=== PATIENT | female | born 1965 | race Caucasian/White ===

== ENCOUNTER 2017-11-23 17:02 | Emergency (ER) | payer OTHER, SELFPAY ==
[2017-11-23 17:03] VITALS: BP 148/91; PULSE 86; RESP 16; TEMP 37.2; O2SAT 98; BMI 32.3
--- NOTE | 2017-11-23 17:23 | US_ITS ---
STUDY: VENOUS DOPPLER ULTRASOUND - LEFT LOWER EXTREMITY REASON FOR EXAM: Female, 52 years old. Swelling TECHNIQUE: Ultrasound evaluation of the deep vein system to include cool-scale imaging and compression was performed. Cool-scale imaging and Doppler sonographic evaluation, including duplex spectral analysis and qualitative color flow sonography, was performed. COMPARISON: None. FINDINGS: Common Femoral Vein: Normal compression, spontaneity and augmentation. Normal color Doppler. Common Femoral Vein/Greater Saphenous Junction: Normal compression. Femoral Proximal: Normal compression. Femoral Middle: Normal compression, spontaneity and augmentation. Normal color Doppler. Femoral Distal: Normal compression. Popliteal Vein: Normal compression, spontaneity and augmentation. Normal color Doppler. Posterior Tibial Vein: Normal compression. Peroneal Vein: Normal compression. There is superficial thrombophlebitis noted medially of the lower thigh and calf in the region of swelling. US/Venous Duplex Imag/Limited/Uni IMPRESSION: There is superficial thrombophlebitis noted medially of the lower thigh and calf in the region of swelling. Electronically Signed: Fausto Heart DO at 18:40 EDT Tel [phone], Service support ,
--- NOTE | 2017-11-23 18:07 | ED.VISSUMM ---
- ER Visit Summary Date of Service: 11/23/17 Chief Complaint: [Pain and swelling left leg] History of Present Illness: The patient is a 52 F [presents the emergency department complaint of pain and swelling to her left leg that she noticed yesterday. 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 Patient denies any chest pain or shortness of breath. Patient denies any recent travel or surgery. Patient is on oral contraceptive. Patient tells me that she has had a clot in that leg before but she is not sure if it was deep or superficial but states that she was not on any blood thinners. Patient denies any trauma to the leg.] Physical Examination: [HEENT-PERRLA, EOMI. Cranial nerves II through XII grossly intact. TMs clear. Mucous membranes moist. No adenopathy. Cardiovascular-regular rate and rhythm without murmur or ectopy Lungs-clear to auscultation, chest wall stable without crepitus or subcu emphysema Abdomen-normoactive bowel sounds, soft, nontender, no rebound or rigidity, no peritoneal signs. Extremities-intact ?4, normal range of motion, normal pulses. Left leg-patient has some ropes palpated behind the left knee medial aspect concerning for venous clot. Patient has negative Homans sign. Patient has some mild soft tissue swelling noted about the medial portion of the posterior knee. She is nervously intact. Test Results: [Venous duplex of the left lower extremity was negative for DVT but did show superficial thrombophlebitis.] Emergency Department Course and Treatment: [Patient was advised to take a full dose aspirin for the next 2 weeks. Patient advised use warm compresses to the area.] Treatment Plan: [Patient to take aspirin and use warm compresses to the area] Disposition: [Discharged home in stable condition] Impression: [Superficial thrombophlebitis left leg] This note was generated with [employer] dictation software. It may contain incorrect words, spelling, and punctuation that were not noted in review of the chart prior to signing ED Disposition - Plan for ED Patient: Chief Complaint: Lower Extremity Injury Referrals: Tobi Luna DO [Primary Care Provider] -
--- NOTE | 2017-11-23 18:09 | ED.DEP ---
ED Disposition - Plan for ED Patient: Chief Complaint: Lower Extremity Injury Instructions: ED Phlebitis Superficial Referrals: Tobi Luna DO [Primary Care Provider] - 5-7 Days
[2017-11-23 18:14] VITALS: BP 135/86; PULSE 76; RESP 16; O2SAT 98
== END 2017-11-23 18:21 | disposition home or self-care (01) ==
LOC: ED 18:19
PROVIDERS: Emergency Provider Emergency Medicine; Family Provider Family Medicine; PCP Family Medicine
DX: I80.02 Phlebitis and thrombophlebitis of superficial vessels of left lower extremity (principal); Z79.82 Long term (current) use of aspirin; Z79.899 Other long term (current) drug therapy
CPT/HCPCS: 93971; 99282

== ENCOUNTER → 2018-08-06 | Outpatient (CLI) | payer OTHER, SELFPAY ==
[2018-08-06 10:41] LABS: Vitamin D,25 Hydroxy 22.2 ng/mL (29.95-100.01)
[2018-08-06 10:51] LABS: Free T3 3.1 pg/mL (2.18-3.98); T4 Free Direct 0.98 ng/dL (0.76-1.46); Thyroid Stim Hormone (TSH) 2.83 uIU/mL (0.358-3.74)
== END | disposition home or self-care (01) ==
LOC: MTLAB 08:28
PROVIDERS: Family Provider Family Medicine; PCP Family Medicine; Referring Provider Obstetrics & Gynecology Gynecology; Visit Provider Obstetrics & Gynecology Gynecology
DX: R53.82 Chronic fatigue, unspecified (principal)
CPT/HCPCS: 36415; 82306; 84439; 84443; 84481

== ENCOUNTER 2018-10-12 12:42 | Emergency (ER) | payer OTHER, SELFPAY ==
[2018-10-12 12:43] VITALS: BP 170/91; PULSE 98; RESP 17; TEMP 36.7; O2SAT 98; BMI 37.8
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
== END 2018-10-12 15:54 | disposition home or self-care (01) ==
PROVIDERS: Emergency Provider Emergency Medicine; Family Provider Family Medicine; PCP Family Medicine
DX: R20.2 Paresthesia of skin (principal); E66.9 Obesity, unspecified
CPT/HCPCS: 70450; 99282; J7030

== ENCOUNTER → 2019-07-02 13:11 | Outpatient (CLI) | payer OTHER, SELFPAY ==
[2019-06-21 15:36] VITALS: BMI 37.5
--- NOTE | 2019-07-02 13:12 | MRI_ITS ---
STUDY: MRI RIGHT SHOULDER REASON FOR EXAM: Pain in right arm and shoulder, numbness/tingling, twitching in right arm, pulling/twisting injury 3 weeks ago. TECHNIQUE: Standardized fat and water weighted pulse sequences were obtained in all 3 orthogonal planes. COMPARISON: None. FINDINGS: There is supraspinatus tendinosis (T2 coronal images 11-13) without discrete tendon tear. Normal infraspinatus tendon. Normal subscapularis tendon. Normal teres minor tendon. Normal supraspinatus muscle. Normal infraspinatus muscle. Normal subscapularis muscle. Normal teres minor muscle. Normal glenohumeral articulation. There is mild cystic change of the posterior aspect of the greater tuberosity. Normal biceps labral complex. Normal intracapsular long biceps tendon. Normal labrum. Normal capsulo- ligamentous complex. There is acromioclavicular arthrosis with hypertrophic changes effacing the subacromial fat (T2 sagittal image 17). There is a Type I morphology (flat undersurface), with a neutral orientation. There is no subacromial-subdeltoid bursal fluid. Normal visualized coracohumeral and coracoacromial ligaments. Normal deltoid muscle. Normal trapezius muscle. MRI/Upper Ext Joint Only(Routine) IMPRESSION: Supraspinatus tendinosis without demonstrated rotator cuff tear. Acromioclavicular arthrosis. Electronically Signed: Dylan Cota MD at 14:15 EDT Tel , Service support ,
== END ==
PROVIDERS: PCP Family Medicine; Referring Provider Physician Assistant Surgical; Visit Provider Physician Assistant Surgical
DX: S46.911A Strain of unspecified muscle, fascia and tendon at shoulder and upper arm level, right arm, initial encounter (principal)
CPT/HCPCS: 73221

== ENCOUNTER → 2019-09-27 16:00 | Outpatient (CLI) | payer OTHER, SELFPAY ==
[2019-09-25 17:31] VITALS: BMI 37.5
--- NOTE | 2019-09-27 16:27 | RAD_ITS ---
HISTORY: CERVICAL RADICULOPATHY. PAIN AND STIFFNES IN NECK. NUMBNESS AND TINGLING. INJURY TO RIGHT SHOULDER A FEW MONTHS AGO. A PATIENT PULLED ON HER RIGHT ARM. PAIN SINCE THEN. EXAMINATION/TECHNIQUE: XR Spine Cervical 6 Views: COMPARISON: None FINDINGS: The cervical vertebra show normal height and alignment. No fracture or acute osseous abnormality. No suspicious bony lesion. C5-6 and C6-7 mild disc space narrowing accompanied by mild anterior endplate spurring. The posterior elements appear intact. No spondylolisthesis. C5-6 foraminal narrowing on the right secondary to uncovertebral spurring. The C1-C2 relationship appears normal. The paravertebral soft tissues are unremarkable. RAD/Cerv Spine 4 or 5 Views IMPRESSION: 1. No fracture or acute osseous abnormality. Normal cervical vertebral alignment. 2. C5-6 and C6-7 degenerative disc disease and spondylosis. 3. C5-6 foraminal narrowing on the right secondary to uncovertebral spurring. at 0005 Reported and signed by: Sesar Baumann MD Electronically Signed: Sesar Baumann, at 0:04 EDT Tel , Service support ,
--- OUTSIDE RECORDS SUMMARY | 2020-02-02 12:49 | XMS RPT_ITS | CCD ---
:1965 External Reference #:[id number] Author Organization [facility] Care Team Providers Name Role Phone Marybeth MERINO, Efe Unavailable Unavailable MD Lillie, S Unavailable Geovani Olivier Unavailable Geovani Ruth Unavailable Unavailable DEMETRI Attending Unavailable Allergies Reported Allergen Reaction(s) Severity Date of Onset Location meperidine Swelling Moderate, Moderate 08-24-2015 - [place] [facility] ([id number]) Medications Medication Name Sig Date Prescriber Location aspirin ASPIRIN EC 81 MG TBEC One 08-24-2015 [facility] tablet by mouth daily (03829 ) ASPIRIN [id number] Payton Rueda RN JEN WOMENS 81-300 MG TABS One tablet by 08-24-2015 [facility] (78796) mouth daily ASPIRIN-CALCIUM CARBONATE [id number] Tobi A Jeremy DO JEN WOMENS 81-300 MG TABS One tablet by 08-24-2015 [facility] (09007) mouth daily ASPIRIN-CALCIUM CARBONATE [id number] Tobi A Jeremy DO JEN WOMENS 81-300 MG TABS One tablet by 08-24-2015 [facility] (42106) mouth daily ASPIRIN-CALCIUM CARBONATE 58654957783 Tobi A Jeremy DO aspirin / calcium JEN WOMENS 81-300 MG TABS 08-24-2015 [facility] carbonate One tablet by mouth daily (4 4691) ASPIRIN-CALCIUM CARBONATE [id number] Tobi A Jeremy DO LEVONORGESTREL-ETHINYL ITZEL-28 0.15-30 MG-MCG TABS 08-24-2015 [facility] ESTRAD One tablet by mouth daily for (09772) 24 days LEVONORGESTREL-ETHINYL ESTRAD 34289130212 Tobi A Jeremy DO ITZEL-28 0.15-30 MG-MCG TABS One tablet by 08-24-2015 [facility] (64060) mouth daily for 24 days LEVONORGESTREL-ETHINYL ESTRAD 55454575492 Tobi A Jeremy DO ITZEL-28 0.15-30 MG-MCG TABS One tablet by 08-24-2015 [facility] (27831) mouth daily for 24 days LEVONORGESTREL-ETHINYL ESTRAD 27520117910 Tobi A Jeremy DO ITZEL-28 0.15-30 MG-MCG TABS One tablet by 08-24-2015 [facility] (27922) mouth daily for 24 days LEVONORGESTREL-ETHINYL ESTRAD 90762400455 Tobi A Jeremy DO MULTIPLE VITAMINS-MINERALS ONE-A-DAY WOMENS 50+ 08-24-2015 [facility] ADVANTAGE TABS One tablet by Group (95406) mouth daily MULTIPLE VITAMINS-MINERALS 38238750420 Tobi A Jeremy DO ONE-A-DAY WOMENS 50+ ADVANTAGE TABS One 08-24-2015 [facility] (58460) tablet by mouth daily MULTIPLE VITAMINS-MINERALS 64417395930 Tobi A Jeremy DO ONE-A-DAY WOMENS 50+ ADVANTAGE TABS One 08-24-2015 [facility] (41967) tablet by mouth daily MULTIPLE VITAMINS-MINERALS 40747811359 Tobi A Jeremy DO ONE-A-DAY WOMENS 50+ ADVANTAGE TABS One 08-24-2015 [facility] (23769) tablet by mouth daily MULTIPLE VITAMINS-MINERALS 04005761434 Tobi A Jeremy DO Problems Active Problems Category Problem Name Status Date Location Other screening for Encounter for Active 07-16-2018 - [facility] suspected conditions screening for [place] ([place] (not mental disorders malignant neoplasm of (42175) or infectious disease) cervix Past or Other Problems Category Problem Name Status Date Location Cardiac dysrhythmias Palpitations Completed 08-24-2015 - [facility] (14392) Heart valve disorders Cardiac murmur, Completed 09-08-2015 - [facility] (18452) Other upper Viral upper Completed 05-03-2016 - [facility] respiratory infections respiratory tract Group (33940) infection Unclassified Hypersomnia Completed 08-24-2015 - [facility] (93760) Results Result Name Value Range Unit Interpretation Flag Date Location hpv on 2018-07-23 HPV Interp See Interp HPVN Normal 07-23-2018 Replaced by [facility] ([place]) ([id number]) Comment: Order Comment: Order placed by AP_HPV_ORDER rule from [id number] Result Comment: High Risk HPV Typing: NEGATI VE HPV types 16, 18, 31, 33, 35 , 39, 45, 51, 52, 56, 58, 59, 66 and 68 DNA were undetectable or below the pr e-set threshold. The mireille High-Risk HPV DNA Test is not intended for use as a screening device for Pap normal women under age 3 0 and is not intended to substitute for regular Pap screening. The mireille High-Risk HPV DNA Test is designed to augment existing methods for the detection of cervical diseas e and should be used in conjunction with clinical information derived from [facility] diagnostic and screening tests, physical examinations and full medical history in accordance with appropriate patient management procedures. NOTE: A negative result does not preclude the presence of HPV infection because results depend on adequate specimen collection, absence of inhibitors and sufficient DNA to be detected. See Inter HPVN Performed By: #### HPV #### [address] [address] HPV Source Cervix Normal 07-23-2018 [facility] ([place]) ([id number]) Comment: Order Comment: Order placed by AP_HPV_ORDER rule from [id number] Performed By: #### HPV #### [address] [address] section hand cytology report on 2018-07-19 [employer] Engineer Cytology . Normal 07-19-[address] [facility] Report Pathology Reports [facility] [place] [facility] ([place]) Accession: Collected Date/Time: Received Date/Time: Patholog ist: ([id number]) [id number] 07/16/2018 10:01 EDT 07/16/2018 18:00 EDT [employer] Cytology Report SPECIMEN: Specimen Description: Liquid Prep w/ HPV Specimen: Cervical/Endocervical Screening or Diagnostic: Screening RELEVANT HISTORY: LMP: 05-03-18 Control: Yes [id number] SPECIMEN ADEQUACY: SATISFACTORY FOR EVALUATION ENDOCERVICAL/TRANSFORMATIONAL ZONE COMPONENT PRESENT INTERPRETATION/RESULTS: NEGATIVE FOR INTRAEPITHELIAL LESION OR MALIGNANCY ADJUNCTIVE TESTING: HIGH RISK HPV DNA TESTING ORDERED, REPORT TO FOLLOW UNDER SE PARATE COVER Electronically Signed by Pathology report verified by [facility]. Screened by: LS Electronically signed by Karen SAM (ASCP) Sign-Out Date: 07/19/2018 11:47 Performing Lab: [facility], [address] [place] [address] Disclaimer The Pap test is a screening test for cervical cancer. As evidenced by published data, it is subject to both inherent fal se negative and false positive results. Your patient's results should be interpreted in con text with pertinent clinical history including gynecological examination. Comment: Performed By: #### GYCR #### [place] [address] lab report: thyroid stim hormone (tsh) on 2016-09-08 Thyroid 1.81 0.358-3.74 u[iU]/mL Invalid 09-08-2016 - [facility] [facility] stimulating Interpretation Code 09-09-19 [facility] hormone (TSH) (90957 ) lab report: magnesium on 2016-09-08 Magnesium 2.0 1.8-2.4 mg/dL Invalid Interpretation 017 - [facility] Code 09-08-2016 Group (44 361) lab report: lipid profile on 2016-09-08 Cholesterol 205 200 mg/dL High 09-08-2016 - [facility] 09-08-2016 [facility] (44 691) HDL Cholesterol 45 mg/dL Invalid 09-08-2016 - [facility] Interpretation Code 09-08-2016 Group (18143) LDL Cholesterol 119 0-130 mg/dL Invalid 09-08-2016 - [facility] Interpretation Code 09-08-2016 Group (73600) Triglyceride 206 mg/dL High 09-08-2016 [facility] 09-08-2016 [facility] (44 691) very low density 41 5-40 mg/dL High 09-08-2016 - [facility] lipoproteins 09-08-2016 Group (43743) lab report: basic metabolic profile (bmp ) on 2016-09-08 Anion gap 9 5-15 mmol/L Invalid 09-08-2016 - [place] Interpretation Code 09-08-2016 [facility] (57573) BUN/Creatinine 11.9 RATIO 10-20 Invalid 09-08-2016 - [facility] Ratio Interpretation Code 09-08-2016 [facility] (21693) Calcium 8.8 8.5-10.1 mg/dL Invalid 09-08-2016 - [place] Interpretation Code 09-08-2016 [facility] (66632) Chloride 107 98-107 mmol/L Invalid 09-08-2016 - [place] Interpretation Code 09-08-2016 [facility] (20532) CO2 24.0 21.0-32.0 mmol/L Invalid 09-08-2016 - [place] Interpretation Code 09-08-2016 [facility] (48683) Creatinine 0.84 0.55-1.02 mg/dL Invalid 09-08-2016 - [place] Interpretation Code 09-08-2016 [facility] (92638) eGFR 76 >60 mL/min Invalid 09-08-2016 - [place] (non-black) Interpretation Code 09-09-19 17 [facility] (57784) eGFR 92 >60 mL/min Invalid 09-08-2016 - [place] (non-black) Interpretation Code 09-09-19 17 [facility] (40897) Glucose 90 70-110 mg/dL Invalid 09-08-2016 - [place] Interpretation Code 09-08-2016 [facility] (75793) Potassium 3.9 3.5-5.1 mmol/L Invalid 09-08-2016 - [place] Interpretation Code 09-08-2016 [facility] (12029) Sodium 140 136-145 mmol/L Invalid 09-08-2016 - [place] Interpretation Code 09-08-2016 [facility] (39120) Urea nitrogen 10 7-18 mg/dL Invalid 09-08-2016 - [facility] Interpretation Code 09-08-2016 [facility] (39701) office visit on 10-19-22 Documentation of Done Invalid 09-06-2016 - [place] current Interpretation 09-06-2016 [facility] medications Code (84846) (procedure) Fall risk medical Invalid 09-06-2016 - [place] assessment contraindication Interpretation 017 [facility] Code (97697) clinical lists update: preload on 2016-09-05 Left ventricular 55 % Invalid Interpretation 09-05-2016 - [facility] Ejection fraction Code 09-05-2016 Lilia urbina (83618) office visit: uc: sore throat on 2016-05-03 Tobacco smoking Never Invalid Interpretation 0 05-03-2016 - [facility] status NHIS Code 05-03-2016 Group ( 95700) Tobacco use Never smoker Invalid Interpretation - [place] [facility] Code 05-03-2016 Group (44 691) lab report: urinalysis, employee on 2015-09-17 Nitrite Urine Negative Negative Invalid 09-17-2015 - [facility] Interpretation 09-17-2015 [facility] Code (62366) Occult Blood, 50 Negative High 09-17-2015 - [facility] urine 09-17-2015 [facility] up (86751) specific 1.025 1.002-1.030 Invalid 09-17-2015 - [place] gravity, urine Interpretation 09-17-2015 [facility] Code (54242) Urine, Negative Negative Invalid 09-17-2015 - [place] bilirubin Interpretation 09-17-2015 [facility] presence Code (21409) Urine, clarity Turbid Clear Invalid 09-17-2015 - [facility] Interpretation 09-17-2015 [facility] Code (84700) Urine, color Yellow Yellow Invalid 09-17-2015 [facility] Interpretation 09-17-2015 [facility] Code (90914) Urine, glucose Normal mg/dl Normal Invalid 09-17-2015 - [place] presence Interpretation 09-17-2015 [facility] Code (01081) Urine, ketones Negative Negative Invalid 09-17-2015 - [place] [facility] presence Interpretation 09-17-2015 [facility] Code (77658) Urine, 100 Negative High 09-17-2015 - [place] leukocyte 09-17-2015 [facility] up esterase (90632) presence Urine, pH 6.0 5.0 - 8.0 [pH] Invalid 09-17-2015 - [place] Interpretation 09-17-2015 [facility] Code (22786) Urine, protein Negative Negative mg/d Invalid 09-17-2015 - [facility] L Interpretation 09-17-2015 [facility] Code (27217) urobilinogen, Normal mg/dl Normal Invalid 09-17-2015 - [place] urine, by Interpretation 09-17-2015 [facility] dipstick Code (88059) lab report: thyroid stim hormone (tsh) on 2015-09-17 Thyroid 1.41 0.358-3.74 u[iU]/mL Invalid 09-17-2015 - [place] [facility] stimulating Interpretation Code 09-17-19 [facility] hormone (TSH) (74850 ) lab report: t4 total, thyroxin on 2015-09-17 Thyroxine (T4) 9.8 4.8-13.9 ug/dL Invalid 09-17-2015 - [facility] Interpretation Code 09-17-2015 Group (22128) lab report: employee profile on 2015-09-17 Alanine 25 12-78 U/L Invalid 09-17-2015 - [place] aminotransferase Interpretation 09-17-19 16 Heart (ALT) Code Group (85964) Albumin 3.3 3.4-5.0 g/dL Low 09-17-2015 - [place] 09-17-2015 [facility] (74675) Albumin/Globulin 0.8 RATIO 0.9-2.4 {ratio} Low 09-17-2015 - [place] Ratio 09-17-2015 [facility] (56919) Alkaline phosphatase 52 50-136 U/L Invalid - [place] (ALP) Interpretation 09-17-2015 Hear t Code Group (22299) Anion gap 6 5-15 mmol/L Invalid 09-17-2015 - [place] Interpretation 09-17-2015 Hear t Code Group (87203) Aspartate 17 15-37 U/L Invalid 09-17-2015 - [place] aminotransferase Interpretation 09-17-19 16 Heart (AST) Code Group (92772) Bilirubin (direct) 0.08 0.00-0.30 mg/dL Invalid 09-17-2015 - [place] Interpretation 09-17-2015 Hear t Code Group (36802) Bilirubin (total) 0.40 0.20-1.00 mg/dL Invalid 09-17-2015 - [place] Interpretation 09-17-2015 Hear t Code Group (29257) BUN/Creatinine Ratio 17.2 10-20 Invalid 6 - [place] RATIO Interpretation 09-17-2015 [facility] (25966) Calcium 8.8 8.5-10.1 mg/dL Invalid 09-17-2015 - [place] Interpretation 09-17-2015 [facility] (03786) Chloride 107 98-107 mmol/L Invalid 09-17-2015 - [place] Interpretation 09-17-2015 [facility] (73392) Cholesterol 192 200 mg/dL Invalid 09-17-2015 - [place] Interpretation 09-17-2015 [facility] (28647) CO2 26.0 21.0-32.0 mmol/L Invalid 09-17-2015 - [place] Interpretation 09-17-2015 [facility] (30309) Creatinine 0.81 0.55-1.20 mg/dL Invalid 09-17-2015 - [place] Interpretation 09-17-2015 [facility] (75727) eGFR (non-black) 80 >60 mL/min Invalid 09-17-2015 - [place] Interpretation 09-17-2015 [facility] (08758) eGFR (non-black) 97 >60 mL/min Invalid 09-17-2015 - [place] Interpretation 09-17-2015 [facility] (48615) GE use only - for 4.10 Invalid 09-17-2015 - [place] [employer] import Interpretation 09-17-19 16 Heart when terms are not Code G roup otherwise specified (70161) Globulin 4.2 2.3-3.5 g/dL High 09-17-2015 - [place] 09-17-2015 [facility] (57436) Glucose 86 70-110 mg/dL Invalid 09-17-2015 - [place] Interpretation 09-17-2015 [facility] (40565) HDL Cholesterol 47 mg/dL Invalid 09-17-2015 - [place] Interpretation 09-17-2015 [facility] (85407) lactate 200 84-246 U/L Invalid 09-17-2015 - [place] dehydrogenase - Interpretation 6 Heart serum Code Group (62487) LDL Cholesterol 111 0-130 mg/dL Invalid 09-17-2015 - [place] Interpretation 09-17-2015 [facility] (50737) Phosphorus 2.2 2.5-4.9 mg/dL Low 09-17-2015 - [facility] [facility] [place] [facility] om [facility] (14548) Potassium 4.0 3.5-5.1 mmol/L Invalid 09-17-2015 - [place] Interpretation 09-17-2015 Hear [facility] (14964) Protein 7.5 6.4-8.2 g/dL Invalid 09-17-2015 - [place] Interpretation 09-17-2015 [facility] (35227) Sodium 139 136-145 mmol/L Invalid 09-17-2015 - [place] Interpretation 09-17-2015 [facility] (82156) Triglyceride 172 mg/dL Invalid 09-17-2015 [facility] Interpretation 09-17-2015 [facility] (21082) Urate 5.1 2.6-6.0 mg/dL Invalid 09-17-2015 - [place] Interpretation 09-17-2015 [facility] (17897) Urea nitrogen 14 7-18 mg/dL Invalid 09-17-2015 - [facility] Interpretation 09-17-2015 [facility] (43513) very low density 34 5-40 mg/dL Invalid 09-17-2015 - [place] lipoproteins Interpretation 09-17-2015 [facility] Code Group (87244) lab report: cbc, employee on 2015-09-17 Basophils/100 0.6 0-1 % Invalid 09-17-2015 - [facility] leukocytes Interpretation Code 6 [facility] (57000) Eosinophils/100 3.8 0-5 % Invalid 09-17-2015 - [place] leukocytes Interpretation Code 6 [facility] (58151) Erythrocytes (RBC) 4.31 4.2-5.4 10*6/uL Invalid 09-17-2015 - [place] Interpretation Code 09-17-2015 [facility] (78108) Hematocrit (HCT) 39.1 37-47 % Invalid 09-17-2015 - [place] Interpretation Code 09-17-2015 [facility] (87193) Hemoglobin (HGB) 12.6 12.0-15. g/dL Invalid 09-17-2015 - [place] 0 Interpretation Code 09-17-2015 [facility] (33358) Lymphocytes 1.99 X10 0.83-4.5 Invalid 09-17-2015 - [place] 3/UL 1 Interpretation Code 09-17-2015 [facility] (77108) Lymphocytes/100 37.8 19-41 % Invalid 09-17-2015 - [place] leukocytes Interpretation Code 6 [facility] (00804) MCH 29.2 27.0-32. pg Invalid 09-17-2015 - [place] 0 Interpretation Code 09-17-2015 [facility] (50815) MCHC 32.2 32-36 Invalid 09-17-2015 - [place] G/GL Interpretation Code 09-17-2015 [facility] (31325) MCV 90.7 81-99 fL Invalid 09-17-2015 - [place] Interpretation Code 09-17-2015 [facility] (97593) Monocytes/100 9.9 0-10 % Invalid 09-17-2015 - [place] [facility] leukocytes Interpretation Code 6 [facility] (24053) neutrophil count, 2.5 X10 2.0-7.7 Invalid 09-17-2015 - [place] blood 3/UL Interpretation Code 09-17-2015 [facility] (51589) Neutrophils/100 47.7 47-70 % Invalid 09-17-2015 - [place] leukocytes Interpretation Code 6 [facility] (17158) Platelets 329 150-450 10*3/mm Invalid 09-17-2015 [place] 3 Interpretation Code 09-17-2015 [facility] (48149) PMV by Violet 9.4 6.2-12.0 fL Invalid 09-17-2015 [place] Interpretation Code 09-17-2015 [facility] (70120) RDW-CA 13.2 11.6-14. % Invalid 09-17-2015 - [place] 6 Interpretation Code 09-17-2015 [facility] (07207) red blood cell 43.5 35.1-43. fL Invalid 09-17-2015 - [facility] distribution 9 Interpretation Code 016 [facility] width, size (95216) density WBC (Leukocytes) 5.3 4.4-11.0 10*9/L Invalid 09-17-2015 - [place] Interpretation Code 09-17-2015 [facility] (13414) Vital Signs Vital Sign Description Value / Unit Date Location The following section is limited to 5 en tries per type and includes entries from the following time range: [id number] - [id number] 3. BMI (Body Mass Index) 36.02 kg/m2 09-06-2016 - 09-06-2016 [facility] (93185) Body Temperature 98.4 [degF] 01-17-2017 - 05-03-2016 [facility] (52789) BP Diastolic 82 mm[Hg] 09-06-2016 - 09-06-2016 [facility] (68605) BP Systolic 130 mm[Hg] 09-06-2016 - 09-06-2016 [facility] (28647) BSA (Body Surface Area) 2.17 m2 05-03-2016 - 05-03-2016 [facility] (12005) Height 170.18 cm 09-06-2016 - 09-06-2016 [facility] (76908) Pulse (Heart Rate) 72 /min 09-06-2016 - 09-06-2016 [facility] (53563) Pulse Oximetry 98 % 05-03-2016 - 05-03-2016 [facility] (17034) Respiratory Rate 20 /min 09-06-2016 - 09-06-2016 [facility] (49035) Weight 104.33 kg 09-06-2016 - 09-06-2016 [facility] (20077) Encounters Date Type Reason Provider Location 07-16-2018 - Patient encounter Encounter for IRVIN MOSQUERA Facility: B 07-21-2018 procedure screening for malignant neoplasm of cervix Procedures Procedure Name Date Provider Location *BMP 09-06-2016 - Emanuel Moreira MD [facility] 09-13-2016 ([id number]) 24 hour holter monitor 09-06-2016 - Emanuel Moreira MD [facility] 09-15-2016 (84231) DIET CONSULTANT 09-06-2016 - Emanuel Moreira MD [facility] 09-06-2016 (78878) Follow Up Appt 1 year 09-06-2016 - MD [place] [facility] 09-06-2016 (18154) Magnesium 09-06-2016 - Emanuel Moreira MD [facility] 09-13-2016 (85778) Thyroid stimulating hormone 09-06-2016 - [facility] (TSH) 09-13-2016 (35946) Rapid strep test 05-03-2016 - Brent SANDOVAL [facility] 05-03-2016 (17102) Echocardiography 09-08-2015 - Emanuel Moreira MD [facility] 10-01-2015 (24637) Thyroid stimulating hormone 09-08-2015 - Emanuel Moreira MD [facility] (TSH) 09-17-2015 (74753) Thyroxine (T4) 09-08-2015 - Emanuel Mroeira MD [facility] 09-17-2015 (94926) Plan of Treatment Plan Description Date Location *Hepatic Function Panel *Hepatic Function Panel 09-13-2017 - [facility] 09-23-2016 (78672) *Lipid Profile CC PCP *Lipid Profile CC PCP 09-13-2017 [facility] 09-23-2016 (18032) Appointment Appointment 09-06-2017 - [place] [facility] 09-06-2017 (02991) Appointment Appointment 09-06-2017 - [place] [facility] 09-06-2017 (33340) *BMP *BMP 09-06-2016 - [place] [facility] 09-13-2016 (36845) 24 hour holter monitor 24 hour holter monitor 09-06-2016 - [facility] 09-06-2016 (45415) DIET CONSULTANT DIET CONSULTANT 09-06-2016 - [place] [facility] 09-06-2016 (68011) Follow Up Appt 1 year Follow Up Appt 1 year 09-06-2016 [facility] 09-06-2016 (76570) *Magnesium *Magnesium 09-06-2016 - [place] [facility] 09-13-2016 (60652) *TSH *TSH 09-06-2016 - [place] [facility] 09-13-2016 (44938) DIET CONSULTANT DIET CONSULTANT 09-08-2015 - [place] [facility] 09-08-2015 (25526) Echocardiogram (complete) Echocardiogram (complete) 09-08-2015 - [facility] [facility] 09-08-2015 (92455) Follow Up Appt 1 year Follow Up Appt 1 year 09-08-2015 - [facility] 09-08-2015 (76858) *Lipid Profile CC PCP *Lipid Profile CC PCP 09-08-2015 - [facility] 09-08-2015 (08979) *TSH *TSH 09-08-2015 - [place] [facility] 09-17-2015 (40977) *T4 (Total) *T4 (Total) 09-08-2015 - [place] [facility] 09-17-2015 (83771) Cardiac Referral Emanuel Cardiac Referral [place] 08-24-2015 - [facility] MD Lillie, [place] [facility] MD Lillie, [place] [facility] 08-28-2015 (98206) Group, [address] Group, [address], [place], [address] [address], [place], [address] + Patient education HEART%20PALPITATIONS [facility] [facility] (22977) Summary Purpose Family History No Family History Records Found Advance Directives No Advanced Directives Records Found Additional Source Comments FOR RECORDS PERTAINING TO PATIENTS WHO ARE OR HAVE BEEN ENROLLED IN A CHEMICAL DEPENDENCY/SUBSTANCE ABUSE PROGRAM, SOME INFORMATION MAY BE OMITTED. This clinical summary was aggregated from multiple sources. Caution should be exercised in using it in the provision of clinical care. This summary normalizes information from multiple sources, and as a consequence, information in this document may materially changethe coding, format and clinical context of patient data. In addition, data may be omittedin some cases. CLINICAL DECISIONS SHOULD BE BASED ON THE PRIMARY CLINICAL RECORDS. [employer] [facility] provides no warranty or guarantee of the accuracy or completeness of information in this document. UNRECOGNIZED CONTENT PROVIDED BELOW FOR UNRECOGNIZED SECTION INFORMATION SOURCE DATE CREATED AUTHOR AUTHOR'S ORGANIZATIO N 07/24/2018 [facility] at[place] ([place])
== END ==
PROVIDERS: PCP Internal Medicine; Referring Provider Internal Medicine; Visit Provider Internal Medicine
DX: M54.12 Radiculopathy, cervical region (principal)
CPT/HCPCS: 72050

== ENCOUNTER 2019-10-01 09:00 | Outpatient (RCR) | payer OTHER, SELFPAY ==
[2019-07-02 17:22] VITALS: BMI 37.5
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
--- NOTE | 2019-08-15 17:26 | HP.PTREVAL ---
JAIME Monaco, It has been my pleasure to treat JOSE DANIEL JENNINGS over the last 10 visits for R shoulder strain. Please see the progress note below for an update on the physical therapy plan of care! Subjective: Pt reports she is still really sore this date Objective/Function: R shoulder and neck pain is not progressing at this time as pt continues to have sleep difficulty as a result. 11/24 this date. R shoulder MMT: 4+/5 throughout with the exception of ER= 4/5. Pt is now I with HEP of rotator cuff and scapular stabilizer strengthening Plan Plan: Continue after doctor visit Goals Goal 1:: Decrease R shoulder and neck pain x 50% to aid with sleep Goal Time Frame: 4-6 Weeks Goal Progress: Not Progressing Goal 2:: Increase R shoulder strength x 1 grade to aid with RTW without limitation Goal Time Frame: 4-6 Weeks Goal Progress: Progressing Goal 3:: I with HEP Goal Time Frame: 4-6 Weeks Goal Progress: Goal Met Anticipated Interventions Patient/Client Instruction: Educate patient on: Condition, Plan of Care For the Purpose of:: To improve self management Therapeutic Exercise to Include: Strength training, Endurance training, Body mechanics, Active ROM, Scapular Strength/Stabilization For the Purpose of:: To decrease pain, To increase ROM, To improve muscle performance and motor function Cryotherapy (ice pack, ice massage): Yes For the Purpose of:: To decrease pain Please do not hesitate to contact me at [phone] by phone or if you have questions or concerns regarding this new plan of care! Sincerely, Luther Jennings, PT, ATC
--- NOTE | 2019-08-21 08:43 | HP.PTREVAL ---
JAIME Monaco, It has been my pleasure to treat JOSE DANIEL JENNINGS over the last 12 visits for R shoulder strain. Please see the progress note below for an update on the physical therapy plan of care! Subjective: I am sore today Objective/Function: R shoulder pain ranges from 5-9/10. R shoulder ROM: flex= 140, abd= 110, ER= 50. R shoulder MMT: 4-/5 and painful with all testing. Pt is making progress but still displays pain, weakness, and limited ROM Plan Plan: Contact referring provider for further action Goals Goal 1:: Decrease R shoulder and neck pain x 50% to aid with sleep Goal Time Frame: 4-6 Weeks Goal Progress: Not Progressing Goal 2:: Increase R shoulder strength x 1 grade to aid with RTW without limitation Goal Time Frame: 4-6 Weeks Goal Progress: Progressing Goal 3:: I with HEP Goal Time Frame: 4-6 Weeks Goal Progress: Goal Met Anticipated Interventions Patient/Client Instruction: Educate patient on: Condition, Plan of Care For the Purpose of:: To improve self management Therapeutic Exercise to Include: Strength training, Endurance training, Body mechanics, Active ROM, Scapular Strength/Stabilization For the Purpose of:: To decrease pain, To increase ROM, To improve muscle performance and motor function Cryotherapy (ice pack, ice massage): Yes For the Purpose of:: To decrease pain Please do not hesitate to contact me at [phone] by phone or if you have questions or concerns regarding this new plan of care! Sincerely, Luther Jennings, PT, ATC
--- NOTE | 2019-10-01 09:37 | HP.PTDCSUM ---
It has been my pleasure to treat JOSE DANIELBAO DARDENYOANAMADHURI referred by JAIME Monaco, with the diagnosis of R shoulder strain for a total of 23 visit(s). Discharge Date: Please see the following information for a summary of their discharge status. Subjective: Pt reports the pain in her R shoulder and R C/S are relatively the same. R shoulder Pain Intensity (Out of 10): 4 % Improvement: 10 Objective/Function: R shoulder and neck pain still at 4/10 pain currently, will increase to 9/10 at worst (last week). R shoulder strength is 5/5 throughout. Pt is I with HEP. Pt has achieved all Rx goals with the exception of decreasing R shoulder and neck pain Goal 1:: Decrease R shoulder and neck pain x 50% to aid with sleep Goal Progress: Not Progressing Goal 2:: Increase R shoulder strength x 1 grade to aid with RTW without limitation Goal Progress: Goal Met Goal 3:: I with HEP Goal Progress: Goal Met Plan: Discontinue to HEP If there are questions or concerns regarding this patient's physical therapy, please feel free to call me at [phone]. Thank you for the referral of this patient. Sincerely, Luther Jennings, PT, ATC
== END 2019-10-01 19:00 | disposition home or self-care (01) ==
LOC: PT 09:00
PROVIDERS: PCP Family Medicine; Referring Provider Physician Assistant Surgical; Visit Provider Physician Assistant Surgical
DX: S46.911D Strain of unspecified muscle, fascia and tendon at shoulder and upper arm level, right arm, subsequent encounter (principal)
CPT/HCPCS: 97014; 97110; 97140; 97161; 97164; G0283

== ENCOUNTER → 2019-11-25 14:56 | Outpatient (CLI) | payer OTHER, SELFPAY ==
[2019-08-16 12:07] VITALS: BMI 37.5
[2019-10-31 15:11] VITALS: BMI 37.5
--- NOTE | 2019-11-25 15:02 | MRI_ITS ---
STUDY: MRI CERVICAL SPINE WITHOUT CONTRAST REASON FOR EXAM: Female, 54 years old. radiculopathy, abn xray, NUMBNESS/TINGLING RIGHT ARM X 3 MOS TECHNIQUE: Standardized fat and water weighted pulse sequences were obtained in the sagittal and axial planes. COMPARISON: Cervical spine x-rays 09/27/2019 FINDINGS: Normal foramen magnum and brainstem-cervical cord junction. Normal craniovertebral junction. Normal anterior atlantoaxial articulation. Normal odontoid process. Decreased cervical lordosis. Normal vertebral bodies and posterior osseous elements. C2-3: Normal endplates. Normal disc height, signal and morphology. Normal central canal and intervertebral neural foramina. C3-4: Normal endplates. Normal disc height, signal and minor bulging disc osteophyte complex with small broad-based left posterolateral/foraminal osteophyte protrusion. Mild narrowing of the central canal and effacement upon the ventral surface of the cord.. Mild right neuroforaminal encroachment and moderate to severe left neuroforaminal stenosis C4-5: Normal endplates. Normal disc height signal and morphology. Normal central canal and intervertebral neural foramina C5-6: Endplate spurring.. Narrowed disc space with mild bulging disc osteophyte complex and prominent broad-based right posterolateral/foraminal disc protrusion. Narrowed central canal and cord compression to the right of the midline. Severe right neuroforaminal stenosis secondary to bony hypertrophy. C6-7: Narrowed disc space and endplate spurring. Minor bulging of the disc and prominent broad-based right paracentral/posterolateral disc protrusion narrowing the central canal compressing the cord to the right of the midline.. Severe right neuroforaminal stenosis and minor encroachment on the left.. C7-T1: Normal endplates. Normal disc height, signal and morphology. Normal central canal and intervertebral neural foramina. Normal cervical cord. Normal visualized soft tissue structures. MRI/Spine Cervical (Routine) IMPRESSION: No evidence for acute fracture or subluxation. Moderate spondylosis and multilevel spinal stenosis most severe at C5-6 and C6-7 on the right Electronically Signed: Milton Chandler MD at 16:19 EDT , Service support ,
== END ==
PROVIDERS: PCP Internal Medicine; Referring Provider Internal Medicine; Visit Provider Internal Medicine
DX: M54.12 Radiculopathy, cervical region (principal)
CPT/HCPCS: 72141

== ENCOUNTER → 2023-03-24 | Outpatient (CLI) | payer OTHER, SELFPAY ==
[2023-03-24 20:10] LABS: Follicle Stimulating Hormone 60.9 mIU/mL; Luteinizing Hormone 35.8 mIU/mL
== END | disposition home or self-care (01) ==
PROVIDERS: PCP Internal Medicine; Referring Provider Obstetrics & Gynecology Gynecology; Visit Provider Obstetrics & Gynecology Gynecology
DX: N95.1 Menopausal and female climacteric states (principal)
CPT/HCPCS: 36415; 83001; 83002

== ENCOUNTER → 2023-03-29 | Outpatient (CLI) | payer OTHER, SELFPAY ==
--- NOTE | 2023-03-29 15:11 | US_ITS ---
STUDY: ULTRASOUND OF THE FEMALE PELVIS - COMPLETE REASON FOR EXAM: Female, 57 years old. POST FATIMAH BLEEDING LMP: Menopause TECHNIQUE: Transabdominal and Transvaginal TECHNICAL QUALITY: Adequate. COMPARISON: None. FINDINGS: The uterus is anteverted and is in a midline position. The uterus measures 10.3 x 5.1 x 4.7 cm. Normal uterine cervix. The endometrium measures 5 mm in thickness, and is hyperechoic. There is no demonstrated endometrial mass. 3.6 cm round hypoechoic mass within the fundus the uterus consistent with an intramural fibroid. Another 2 cm hypoechoic mass in the posterior fundus the uterus consistent with an intramural fibroid. Another 1.5 similar hypoechoic mass in the posterior body of uterus consistent with a submucosal fibroid. I.U.D. - The patient does not have an I.U.D. The right ovary is visualized. The right ovary measures 2.4 x 1.9 x 1.4 cm. There is no right ovarian cyst or ovarian mass. There is no visualized right adnexal mass or complex lesion. There is normal arterial and normal venous vascularity. The left ovary is non-visualized.. There is no fluid in the cul-de-sac. The pre void volume of the bladder was 418 ml. The post void volume of the bladder was ml. Polycystic ovary disease: No. US/Pelvic w/ Transvaginal IMPRESSION: Enlarged fibroid uterus. Electronically Signed: Shaggy Abbott MD at 22:56 EST ,
== END | disposition home or self-care (01) ==
LOC: US 15:09
PROVIDERS: PCP Internal Medicine; Visit Provider Obstetrics & Gynecology Gynecology
DX: N95.0 Postmenopausal bleeding (principal)
CPT/HCPCS: 76830; 76856

== ENCOUNTER 2023-06-15 16:42 | Outpatient (RCR) | payer OTHER, SELFPAY ==
--- NOTE | 2023-06-15 18:25 | HP.PTEVAL ---
Patient's Visit Information Visit Information Visit Information: JOSE DANIEL MARQUEZ is a 58 year old F referred to Physical Therapy by JAIME Monaco with a diagnosis of STRAIN OF UNSPECIFIED MUSCLE ,FASCIA AND TENDON AT SHOULDER. Date of Evaluation: 06/15/23 Physical Therapist: Eliseo Boone, PT, Cert MDT, OCS Visit Plan Frequency: 2x /Week Duration: 4 Weeks Plan: PT INTERVENTIONS INITIALLY MODALITIES ( US/ESTIM/CP) ,ACTIVITY MODIFICATION ,CERVICAL POSTURAL EX'S CL Subjective Subjective: This 58 y/o female presents to physical therapy with right shoulder and arm pain. Patient developed right shoulder pain ~ 3 weeks . Patient pain was insidious onset pain . Although, has h/o right shoulder pain ~ 2 years. Seen PA recommended PT no diagnostics. Patient pain location is elbow to hand . Patient was prednisone pack. Aggravating pushing ,lifting. Unable to lay on stomach. Symptoms better overhead.Described as ache burning. Patient has h/o neck pain ,patient had MRI showed stenosis severe stenosis and protruding disc. C/O paresthesia/tingling right arm. Symptoms affects sleeping. C/O CHANDLER occiput. Denies dizziness/tinnitus. Patient pain affects QOL and function/job demands. SOCIAL: VOCATION: RN Pain Right Shoulder: Pain Intensity (Out of 10): 0 Pain Intensity Range: 10 Right Elbow: Pain Intensity (Out of 10): 9 Comment: FOREARM Objective Objective: POSTURE: guarded rounded shoulders head forward NEURO: c/o paresthesia/tingling , reflexes C-6-7 2/3 , myotomes slightly weak C5-6 ,C7 AROM: shoulder flexion/abduction 150 degrees ,ER 90 MMT: RTC 4/5 ,DELTOID 4-/5 CERVICAL ROM: flexion mod pain ,extension mod pain ,rotation /lateral right pain ,retraction mod loss pain Special Tests C/S Radiculapathy - Left Upper limb tension test: Negative C/S Radiculapathy - Right Upper limb tension test: Negative C/S Radiculapathy - Left Spurlings: Negative C/S Radiculapathy - Right Spurlings: Positive C/S Radiculapathy - Left Cervical distraction: Negative C/S Radiculapathy - Right Cervical distraction: Negative C/S Radiculapathy - Left Relief test: Negative C/S Radiculapathy - Right Relief test: Negative Sharp Erika: Negative Vertebral Artery Test: Negative Alar Ligament Test: Negative Cervical Sitting: Protrusion - Mechanical Response: No effect Cervical Sitting: Protrusion - Symptoms During Testing: Peripheralizing Cervical Sitting: Protrusion - Symptoms After Testing: Worse Cervical Sitting: Retraction - Mechanical Response: No effect Cervical Sitting: Retraction - Symptoms During Testing: Peripheralizing Cervical Sitting: Retraction - Symptoms After Testing: Worse Cervical Sitting: Retraction-Extension - Mechanical Response: No effect Cerv Sitting: Retraction-Extension - Symptoms During Testing: Peripheralizing Cerv Sitting: Retraction-Extension - Symptoms After Testing: Worse Cervical Sitting: Sidebend Right - Mechanical Response: No effect Cervical Sitting: Sidebend Right - Symptoms During Testing: Peripheralizing Cervical Sitting: Sidebend Right - Symptoms After Testing: Worse Cervical Sitting: Sidebend Left - Mechanical Response: No effect Cervical Sitting: Sidebend Left - Symptoms During Testing: No effect Cervical Sitting: Sidebend Left - Symptoms After Testing: No effect Cervical Sitting: Rotation Right - Mechanical Response: No effect Cervical Sitting: Rotation Right - Symptoms During Testing: Peripheralizing Cervical Sitting: Rotation Right - Symptoms After Testing: Worse Cervical Sitting: Rotation Left - Mechanical Response: No effect Cervical Sitting: Rotation Left - Symptoms During Testing: No effect Cervical Sitting: Rotation Left - Symptoms After Testing: No effect Cervical Sitting: Flexion - Mechanical Response: No effect Cervical Sitting: Flexion - Symptoms During Testing: Peripheralizing Cervical Sitting: Flexion - Symptoms After Testing: Worse Balance/Special Test Scores Oswestry Neck Score: 30 Goals Goal 1:: Patient to be I with HEP Goal Time Frame: 4-6 Weeks Goal 2:: Patient to demonstrate 40% improvement with less pain and improved function Goal Time Frame: 4-6 Weeks Goal 3:: Patient to improve cervical ROM for function of recovery to drive and job demands Goal Time Frame: 4-6 Weeks Goal 4:: Patient to improve neck oswestry score by 3-5 points to improve QOL and function Goal Time Frame: 4-6 Weeks Rehabilitation Potential Physical Therapy Diagnosis: Patient has apparent cervical radiculopathy with derangement below elbow with pain periphilizes with mosition testing worse all panes of testing extension ,flexion and towards right as well as traction did have MRI several years ago showed severe foraminal stenosis on right thus recommend PT and return to spine DR Rehabilitation Potential: Fair Anticipated Interventions Patient/Client Instruction: Educate patient on: Condition and Plan of Care For the Purpose of:: To decrease pain, To increase ROM, To improve muscle performance and motor function, To improve ability to perform ADL's, To increase tolerance to activity/condition/position, To improve ability of physical actions for home/community/work/leisure, To improve health of tissue, To decrease soft tissue restriction, To increase flexibility/ROM and To improve tolerance to ADL's Therapeutic Exercise to Include: Strength training, Postural training, Flexibilty training, Active ROM and Kevin Exercises For the Purpose of:: To decrease pain, To increase ROM, To improve nutrient delivery to tissue, To increase oxygenation perfusion, To improve muscle performance and motor function, To increase tolerance to activity/condition/position, To improve ability of physical actions for home/community/work/leisure, To improve health of tissue, To decrease soft tissue restriction, To increase flexibility/ROM and To improve tolerance to ADL's Text: Thank you for the opportunity to evaluate your patient. For Medicare and Medicare HMO plans, please review the plan of care and approve it. It will need to be FAXED BACK to us at [phone] for Medicare purposes. For Medicare only, by signing this I certify the plan of care. Please let me know if there are questions or concerns regarding this plan of care. Physician Signature: Date:
--- NOTE | 2023-07-31 12:29 | HP.PT.NRP ---
Patient Information Patient Information: JOSE DANIEL MARQUEZ was seen in my office for initial evaluation on 06/15/23. The following Plan of Care was established for this patient: POC Established Initial Frequency: 2x /Week Initial Duration: 4 Weeks Anticipated Interventions Patient/Client Instruction: Educate patient on: Condition and Plan of Care For the Purpose of:: To decrease pain, To increase ROM, To improve muscle performance and motor function, To improve ability to perform ADL's, To increase tolerance to activity/condition/position, To improve ability of physical actions for home/community/work/leisure, To improve health of tissue, To decrease soft tissue restriction, To increase flexibility/ROM and To improve tolerance to ADL's Therapeutic Exercise to Include: Strength training, Postural training, Flexibilty training, Active ROM and Kevin Exercises For the Purpose of:: To decrease pain, To increase ROM, To improve nutrient delivery to tissue, To increase oxygenation perfusion, To improve muscle performance and motor function, To increase tolerance to activity/condition/position, To improve ability of physical actions for home/community/work/leisure, To improve health of tissue, To decrease soft tissue restriction, To increase flexibility/ROM and To improve tolerance to ADL's Last Seen Last Seen: This patient was last seen in our office . Pertinent comments regarding their Physical therapy will appear below: Patient was seen for PT for shoulder pain. Recommended ortho consult and had MRI showed Cervical HNP. At this point I will be discontinuing this patient from physical therapy. I would be happy to see this patient again in the future if found appropriate by the physician. Thank you! Eliseo Boone, PT, Cert MDT, OCS Balance/Gait/Functional tests Balance/Special Test Scores Oswestry Neck Score: 30
== END 2023-06-15 19:00 | disposition home or self-care (01) ==
LOC: PT 16:42
PROVIDERS: PCP Internal Medicine; Referring Provider Physician Assistant Surgical; Visit Provider Physician Assistant Surgical
DX: S46.911D Strain of unspecified muscle, fascia and tendon at shoulder and upper arm level, right arm, subsequent encounter (principal)
CPT/HCPCS: 97162

== ENCOUNTER → 2023-06-30 | Outpatient (CLI) | payer OTHER, SELFPAY ==
--- NOTE | 2023-06-30 14:54 | MRI_ITS ---
STUDY: MRI CERVICAL SPINE WITHOUT CONTRAST REASON FOR EXAM: Female, 58 years old. neck pain TECHNIQUE: Standardized fat and water weighted pulse sequences were obtained in the sagittal and axial planes. COMPARISON: November 25, 2019 FINDINGS: Normal foramen magnum and brainstem-cervical cord junction. Normal craniovertebral junction. Normal anterior atlantoaxial articulation. Normal odontoid process. Loss of cervical lordosis possibly due to muscle spasm or positioning artifact. No evidence for acute fracture or subluxation.. Interosseous hemangioma within C7 vertebral body. C2-3: Normal endplates. Normal disc height, signal and morphology. Normal central canal and intervertebral neural foramina. C3-4: Normal endplates. Normal disc height, signal and morphology. Normal central canal and intervertebral neural foramina. C4-5: Normal endplates. Normal disc height, signal and morphology. Normal central canal and intervertebral neural foramina. C5-6: Narrowed disc space and minor bulging disc osteophyte complex in association with broad-based large right paracentral/posterolateral disc extrusion with mild superior migration of disc fragment narrowing the spinal canal and compressing the cord on the right there is also severe right neural foraminal stenosis secondary to bony hypertrophy and mild to moderate narrowing on the left. C6-7: Normal endplates. Narrowed disc space and prominent right paracentral/posterolateral disc protrusion narrowing the spinal canal and compressing the cord on the right.. Moderate to severe right neural foraminal stenosis and mild to moderate narrowing on the left secondary to bony hypertrophy. C7-T1: Normal endplates. Normal disc height, signal and morphology. Normal central canal and intervertebral neural foramina. Normal cervical cord. Normal visualized soft tissue structures. Findings are not changed appreciably since prior exam MRI/Spine Cervical (Routine) IMPRESSION: Spinal stenosis and cord compression more severe on the right C5-6 and C6-7 secondary to disc protrusions and mild bony hypertrophy. Electronically Signed: Milton Chandler MD at 17:32 EDT Reading Location ID and State: [facility] / [place] Tel , Service support ,
== END | disposition home or self-care (01) ==
LOC: MRI 14:53
PROVIDERS: PCP Internal Medicine; Referring Provider Orthopaedic Surgery; Visit Provider Orthopaedic Surgery
DX: M50.222 Other cervical disc displacement at C5-C6 level (principal); M50.223 Other cervical disc displacement at C6-C7 level
CPT/HCPCS: 72141

== ENCOUNTER → 2023-07-05 | Outpatient (CLI) | payer OTHER, SELFPAY ==
--- NOTE | 2023-07-05 14:40 | RAD_ITS ---
INDICATION: Pain EXAMINATION/TECHNIQUE: X-RAY - XR Spine Cervical 4 or 5 Views COMPARISON: Prior study dated: 09/27/2019 FINDINGS: VERTEBRAE: Preserved vertebral body height. No fracture. No spondylolisthesis. Straightening of the cervical spine. No significant facet arthropathy. DISCS: Narrowing of C5-C6 and C6-7 disc spaces with endplate spondylosis unchanged. NECK SOFT TISSUES: No prevertebral soft tissue widening. LUNG APICES: Clear. RAD/Cerv Spine 2 or 3 Views IMPRESSION: Degenerative changes of the cervical spine unchanged.. Electronically Signed: Russ Yusuf MD at 11:16 EDT ,
== END | disposition home or self-care (01) ==
LOC: RAD 14:35
PROVIDERS: PCP Internal Medicine; Referring Provider Orthopaedic Surgery; Visit Provider Orthopaedic Surgery
DX: M50.223 Other cervical disc displacement at C6-C7 level (principal); M50.222 Other cervical disc displacement at C5-C6 level
CPT/HCPCS: 72040

== ENCOUNTER → 2024-05-28 | Outpatient (CLI) | payer OTHER, SELFPAY ==
[2024-05-28 16:18] LABS: Anion Gap 7 (5-15); BUN 18 mg/dL (7-18); BUN/Creat Ratio 19.1 RATIO (10-20); Calcium,Total 9.3 mg/dL (8.5-10.1); Chloride 108 mmol/L (98-107); Creatinine, Serum 0.94 mg/dL (0.55-1.02); EST Glomerular Filtration Rate 65 mL/min (>60); Est Glom Filt Rate - Afr Amer 79 mL/min (>60); Glucose 107 mg/dL (74-106); Potassium 3.6 mmol/L (3.5-5.1); Sodium Level 139 mmol/L (136-145)
[2024-05-28 21:32] LABS: Hemoglobin A1c 6.1 % (3.8-5.6)
== END | disposition home or self-care (01) ==
LOC: LAB 14:44
PROVIDERS: PCP Internal Medicine; Referring Provider Nurse Practitioner Family; Visit Provider Nurse Practitioner Family
DX: Z00.00 Encounter for general adult medical examination without abnormal findings (principal); I10 Essential (primary) hypertension; E66.9 Obesity, unspecified; Z71.89 Other specified counseling; E78.2 Mixed hyperlipidemia; R00.2 Palpitations; R01.1 Cardiac murmur, unspecified
CPT/HCPCS: 36415; 80048; 83036

== ENCOUNTER → 2024-10-25 | Outpatient (CLI) | payer OTHER, SELFPAY ==
--- OUTSIDE RECORDS SUMMARY | 2024-10-25 06:10 | XMS RPT_ITS | CCD ---
Author Organization [facility] Care Team Providers Care Section Gang Worker Name Role Phone Marybeth MERINO, Payton Wilks Unavailable Unavailable MD Lillie, Emanuel Roman Unavailable Amna Olivier Unavailable Jalen Ruth Unavailable Unavailable Payton Rueda RN Unavailable Unavailable Jalen Ruth Unavailable Unavailable Dr. Patt Salamanca Primary Care Provider [phone] Dr. Patt Salamanca Attending Provider [phone] Dr. Patt Salamanca Referring Provider [phone] Roof RIGGING UP MAN, RIGGING UP MAN-Beny Jiménez Attending Provider PATT SALAMANCA MD Primary Care [phone] KOURTNEY MOSQUERA Attending Unavailable PATT SALAMANCA MD Primary Care Unavailab Dr. Patt Man Primary Care Provider [phone] Dr. Patt Salamanca Referring Provider [phone] JAIME Pace Attending Provider Dr. Sanket Evans Attending Provider Sanket Evans Referring Unavailable Patt Salamanca Primary Care Unavailable Sanket Evans Attending Unavailable Patt Salamanca Primary Care Unavailable Sanket Evans Attending Unavailable Sanket Evans Referring Unavailable Patt Salamanca Primary Care Unavailable Patt Salamanca Attending Unavailable Patt Salamanca Referring Unavailable Roof Andrea SHAH Attending Unavailable Patt Salamanca Referring Unavailable Oleghorly, Patt Primary Care Unavailable Oleriky, Patt Primary Care Unavailable Cheikh, Efdarcieongbe Referring Unavailable Sanket Evans Attending Unavailable Payton Mahmood Attending Unavailable Arianorly, Patt Primary Care Unavailable Olebilliee, Efnaybe Primary Care Unavailable Cheikh, Efdarcieongbe Referring Unavailable Sanket Evans [facility] Unavailable Assessment, Health Risk Attending Unavaila ble Assessment, Health Risk Referring Unavaila ble Roof RIGGING UP MANAndrea Attending Unavailable Roof RIGGING UP MANAndrea Referring Unavailable Arianorly, Patt Primary Care Unavailable Allergies Allergy Classification Reported Allergen(s) Allergy Type Date of Onset Reaction(s) Facility (6 sources) meperidine drug allergy 08-24-19 16 Swelling [facility] Work Phone: (6 sources) diphenhydrAMINE; Translations: [diphenhydramine] Drug Allergy 01-11-20 Swelling (finding) [facility] (6 sources) Meperidine; Translations: [meperidine HCl] Drug Allergy 01-11-20 23 Swelling [facility] (1 source) Bee/Wasp/Ant venom Allergy to substance Weal (disorder) [facility] (1 source) Meperidine; Translations: [meperidine] Drug Allergy Weal (disorder) [facility] (1 source) diphenhydrAMINE Drug Allergy 02-09-20 [facility] Repository Medications Current Medications Medication Drug Class(es) Dates Sig (Normalized) Sig (Original) amLODIPine 5 mg oral tablet (20 sources) Dihydropyridine Calcium Channel Manuel Start: 11-03-2021 End: 11-21-2022 Amlodipine Active 5 MG PO DAILY November 21, 2022 9:29am Take with 2.5 to equal 7.5mg PO daily Start: 11-03-2021 End: 11-21-2022 take 5 mg by mouth once daily, then take 7.5 mg by mouth once daily Amlodipine Active 2.5 MG PO DAILY November 21, 2022 9:28am Take with 5mg to equal 7.5mg PO daily Start: 11-27-2020 take 1.5 tablets by mouth once daily amLODIPine 5 mg oral tablet TAKE 1.5 TABLETS BY MOUTH DAILY Start Date: 11/27/20 Status: Ordered Start: 09-25-2019 End: 11-03-2021 take 7.5 mg by mouth once daily Amlodipine Discontinue d 7.5 MG PO DAILY 135 90 December 11, 2020 11:28am November 03, 2021 4:39pm Start: 05-23-2019 End: 09-25-2019 take 5 mg by mouth once daily Amlodipine Discontinued 5 MG PO DAILY May 23, 2019 4:45pm September 25, 2019 6:01pm Start: 10-30-2018 End: 05-23-2019 take 10 mg by mouth once daily Amlodipine Discontinued 10 MG PO DAILY October 30, 2018 12:00am May 23, 2019 4:43pm norethindrone acetate 5 mg o ral tablet (1 source) Start: 04-18-2023 Aygestin 5 mg oral tablet Dose : 10 mg = 2 tab(s), Oral, qDay, Take 2 tabs nightly for 12 days each month. Start on the ., # 72 tab(s), 1 Refill(s), Pharmacy: [facility], Postmenopausal bleeding Screening for breast cancer, 167.5, cm, 04/18/23 15:05:00 EST, Height, kg, 04/18/23 15:05:00 EST, Dosing Weight Start Date: 04/18/23 Status: Ordered Completed/Discontinued Medications Medication Drug Class(es) Dates Sig (Normalized) Sig (Original) acetaminophen 325 mg / oxyCODONE hydrochloride 5 mg oral tablet (3 sources) Opioid Agonist Start: 06-21-2023 End: 07-01-2023 take 1 tablet by mouth every six hours Oxycodone-Acetamin ophen Discontinued 1 TABLET PO EVERY 6 HOURS 40 June 21, 2023 July 01, 2023 12:16am aspirin 81 mg oral tablet (16 sources) Platelet Aggregation Inhibitor, Nonsteroidal Anti-inflammatory Drug Start: 08-24-2015 take 81-300 mg by mouth once daily JEN WOMENS 81-300 MG TABS One tablet by mouth daily ASPIRIN-CALCIUM CARBONATE [id number] Tobi Efe Jeremy Start: 08-24-2015 take 1 tablet by fern th once daily ASPIRIN EC 81 MG TBEC One tablet by mouth daily ASPIRIN [id number] Payton Rueda RN Start: 08-24-2015 take 1 tablet by fern th once daily JEN WOMENS 81-300 MG TABS One tablet by mouth daily ASPIRIN-CALCIUM CARBONATE [id number] Tobi Luna DO Start: 05-01-2015 End: 10-30-2018 take 81 mg by mouth once daily Aspirin Discontinued 81 MG PO DAILY@0800 May 01, 2015 1:00am October 30, 2018 4:02pm ASPIRIN-CALCIUM CARBONATE (1 source) Nonsteroidal Anti-inflammatory Drug Start: 08-24-2015 take 1 tablet by mouth once daily JEN WOMENS 81-300 MG TABS One tablet by mouth daily ASPIRIN-CALCIUM CARBONATE [id number] Tobi Wilks [facility] busPIRone hydrochloride 5 mg oral tablet (5 sources) Start: 01-30-2020 End: 02-05-2020 take 5 mg by mouth twice daily Buspirone Discontinued 5 MG PO TWICE A DAY January 30, 2020 12:00am February 05, 2020 10:58am cholecalciferol 0.025 mg oral capsule (5 sources) Vitamin D Start: 10-30-2018 End: 09-25-2019 take 1 capsule by mouth once daily cholecalciferol (vitamin D3) 1,000 unit capsule Discontinued 1000 UNIT PO DAILY October 30, 2018 12:00am September 25, 2019 5:29pm escitalopram 5 mg oral tablet (5 sources) Serotonin Reuptake Inhibitor Start: 01-30-2020 End: 02-05-2020 take 5 mg by mouth once daily Escitalopram Oxalate Discontinued 5 MG PO DAILY January 30, 2020 12:00am February 05, 2020 10:58am LEVONORGESTREL-ETHIN YL ESTRAD (7 sources) Progestin, Estrogen, Progestin-containing Intrauterine Device Start: 08-24-2015 take 1 tablet by mouth once daily ITZEL-28 0.15-30 MG-MCG TABS One tablet by mouth daily for 24 days LEVONORGESTREL-ETHI NYL ESTRAD [id number] Tobi Luna DO Start: 05-01-2015 End: 11-03-2021 Levonorgestrel-Ethinyl Estra d Discontinued 1 EACH PO DAILY May 01, 2015 1:00am November 03, 2021 3:57pm LEVONORGESTREL-ETHINYL ESTRAD (4 sources) Start: 08-24-2015 take 1 tablet by mouth once daily ITZEL-28 0.15-30 MG-MCG TABS One tablet by mouth daily for 24 days LEVONORGESTREL-ETHINYL ESTRAD [id number] Tobi Luna DO methylPREDNISolone 4 mg oral tablet (8 sources) Corticosteroid Start: 05-26-2023 End: 06-01-2023 take 1 tablet by mouth once Methylprednisolone (Medrol (Rodrigo)) 4 mg tablets,dose pack Discontinued 4 MG PO per package directions 05 10May 26, 2023 1:00am June 01, 2023 1:04am Start: 07-02-2019 End: 07-07-2019 take 1 tablet by mouth once Methylprednisolone (Medrol (Rodrigo)) 4 mg tablets,dose pack Discontinued 4 MG PO per package directions 04 09July 02, 2019 12:00am July 07, 2019 12:08am MULTIPLE VITAMINS-MINERALS (4 sources) Start: 08-24-2015 take 1 tablet by mouth once daily ONE-A-DAY WOMENS 50+ ADVANTAGE TABS One tablet by mouth daily MULTIPLE VITAMINS-MINERALS [id number] Tobi Luna DO MULTIPLE VITAMINS-MINERALS (2 sources) Start: 08-24-2015 take 1 tablet by mouth once daily ONE-A-DAY WOMENS 50+ ADVANTAGE TABS One tablet by mouth daily MULTIPLE VITAMINS-MINERALS [id number] Tobi Luna DO Multivitamin preparation (5 sources) Start: 12-13-2016 End: 09-25-2019 Multivitamin Discontinued 1 EACH PO DAILY December 13, 2016 12:00am September 25, 2019 5:29pm Start: 12-13-2016 End: 09-25-2019 Multivitamin Discontinued 1 EACH PO DAILY December 12, 2016 11:00pm September 25, 2019 4:29pm naproxen 500 mg oral tablet (5 sources) Nonsteroidal Anti-inflammatory Drug Start: 10-12-2018 End: 10-30-2018 take 500 mg by mouth twice daily as needed Naproxen Discontinued 500 MG PO TWICE DAILY NEEDED October 12, 2018 12:00am October 30, 2018 3:45pm predniSONE 20 mg oral tablet (5 sources) Start: 12-13-2016 End: 10-30-2018 take 3 tablets by mouth once daily, then take 2 tablets by mouth once daily, then take 1 tablet by mouth once daily Prednisone Discontinued 20 MG PO DAILY December 13, 2016 12:00am October 30, 2018 3:45pm 3 tabs p.o. daily day 1 4, 2 tabs p.o. daily day 5 8, 1 tab p.o. daily day 9 12 Problems Active Problems Problem Classification Problem Date Documented Date Episodic/Chronic Anxiety disorders (5 sources) Mixed anxiety and depressive disorder; Translations: [Other specified anxiety disorders] 10-08-2020 Chronic Cardiac dysrhythmias (11 sources) Palpitations; Translations: [Palpitations] Onset: 08-24-2015 08-24-2015 Episodic Disorders of lipid metabolism (7 sources) Hyperlipidemia; Translations: [Hyperlipidemia, unspecified] 01-10-2023 Chronic Essential hypertension (9 sources) Essential hypertension; Translations: [Essential (primary) hypertension] 11-03-2021 Chronic Heart valve disorders (11 sources) Cardiac murmur, unspecified; Translations: [Heart murmur] Onset: 09-08-2015 09-08-2015 Episodic Menopausal disorders (2 sources) Postmenopausal bleeding; Translations: [Postmenopausal bleeding] Onset: 04-18-2023 Chronic Other nervous system disorders (5 sources) Facial paresthesia; Translations: [Paresthesia of skin] 10-13-2018 Episodic Other screening for suspected conditions (not mental disorders or infectious disease) (4 sources) Encounter for other screening for malignant neoplasm of breast; Translations: [Encounter for screening for malignant neoplasm of cervix] Onset: 04-18-2023 Episodic Spondylosis; intervertebral disc disorders; other back problems (20 sources) 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; Translations: [Herniation of intervertebral disc at C6-C7 level] Onset: 07-05-2023 06-21-2023 Chronic Sprains and strains (5 sources) Shoulder strain; Translations: [Strain of unspecified muscle, fascia and tendon at shoulder and upper arm level, right arm, initial encounter] 10-08-2020 Episodic Past or Other Problems Problem Classification Problem Date Documented Da te Episodic/Chronic Other upper respiratory infections (6 sources) Viral upper respiratory tract infection; Translations: [Acute upper respiratory infection, unspecified] Onset: 05-03-2016 05-03-2016 Episodic Residual codes; unclassified (6 sources) Hypersomnia; Translations: [Hypersomnia, unspecified] Onset: 08-24-2015 08-24-2015 Episodic Spondylosis; intervertebral disc disorders; other back problems (9 sources) Cervical radiculopathy; Translations: [Radiculopathy, cervical region] Onset: 06-22-2023 10-08-2020 Episodic Results Test Name Value Interpretation Reference Range Facility Basic Metabolic Profile (BMP )on 05-28-2024 BUN/CRE 19.1 RATIO Normal 10-20 [facility] Comment on above: Performed By: #### L 500.2500, L501.9985 #### [facility] [address] [place], [address] CA,Total 9.3 mg/dL Normal 8.5-10.1 [facility] Comment on above: Performed By: #### L 500.2500, L501.9985 #### [facility] [address] [place], [address] Chloride [Moles/Vol] 108 mmol/L High 98-107 [facility] Comment on above: Performed By: #### L 500.2500, L501.9985 #### [facility] [address] [place], [address] CO2 [Moles/Vol] 25.0 mmol/L Normal 21.0-32.0 [facility] Comment on above: Performed By: #### L 500.2500, L501.9985 #### [facility] [address] [place], [address] Creatinine [Mass/Vol] 0.94 mg/dL Normal 0.55-1.02 [facility] Comment on above: Result Comment: The validity of the calculated GFR GFRAA in patients over 70 years has not been determined. Clinical correlation is essential. Performed By: #### L 500.2500, L501.9985 #### [facility] [address] [place], [address] EST GFR - AA 79 mL/min Normal >60 [facility] Comment on above: Result Comment: Afri can Greek GFR Calc Performed By: #### L 500.2500, L501.9985 #### [facility] [address] [place], [address] GAP 7 Normal 5-15 [facility] Comment on above: Performed By: #### L 500.2500, L501.9985 #### [facility] [address] [place], [address] GFR/1.73 sq M.predicted among non-blacks MDRD (S/P/Bld) [Vol rate/Area] 65 mL/min/{1.73_m2} Normal >60 [facility] Comment on above: Result Comment: Non- GFR Calc Performed By: #### L 500.2500, L501.9985 #### [facility] [address] [place], [address] Glucose [Mass/Vol] 107 mg/dL High 74-106 [facility] Comment on above: Result Comment: Fast ing Glucose result from 100 to 125 mg/dL suggests IMPAIRED HOMEOSTASIS per A.D.A. criteria. Performed By: #### L 500.2500, L501.9985 #### [facility] [address] [place], [address] Potassium [Moles/Vol] 3.6 mmol/L Normal 3.5-5.1 [facility] Comment on above: Performed By: #### L 500.2500, L501.9985 #### [facility] [address] [place], [address] Sodium [Moles/Vol] 139 mmol/L Normal 136-145 [facility] Comment on above: Performed By: #### L 500.2500, L501.9985 #### [facility] [address] [place], [address] Urea nitrogen [Mass/Vol] 18 mg/dL Normal 7-18 [facility] Comment on above: Performed By: #### L 500.2500, L501.9985 #### [facility] [address] [place], [place], [address] Hemoglobin A1con 05-28-2024 HbA1c (Bld) [Mass fraction] 6.1 % High 3.8-5.6 [facility] Comment on above: Result Comment: Norm al < 5.7 % Prediabetic 5.7 - 6.4 % Diabetic >or= 6.5 % Please note range changes. Performed By: #### L 500.2500, L501.9985 #### [facility] [address] [place], [place], [address] Cardiology Visit Reporton Cardiology Visit Report [facility] [address] [place], [place] [address] OFFICE VISIT Date of Service: 02/09/24 MR#: [id number] Acct: [id number] Name: EMILY MARQUEZ KIKI Rep #: [id number] : 1965 Provider: LAUREL martel Age/Sex: 58/F Location[place] [facility] Status: Signed HPI HPI History of Present Illness Details: EMILY MARQUEZ, is a 58 F who presents to the office today for a follow-up visit. She is a lady with a history of palpitations and a family history of premature coronary artery disease. She returns for routine follow-up visit. She denies chest, arm, jaw, or neck discomfort. She denies symptoms of shortness of breath with exertion, shortness of breath at rest, orthopnea, PND, or sudden weight gain. She states bilateral lower extremity edema that improves with compression stockings. She denies chronic cough. She states snoring. She states night time restless leg. She denies palpitations, lightheadedness, dizziness, near syncope, or syncopal episodes. She denies claudication issues. She denies fever or chills. She denies blood in urine, blood in stool, or epistaxis. She denies myalgia. She denies unexplainable fatigue. Her exercise tolerance is stable. Intake Vital Signs 06/21/23 15:03 12/25/23 15:17 02/09/24 15:38 Height 5 ft 7 in 5 ft 7 in 5 ft 7 in Weight: 238 lb 239 lb BMI 37.3 37.4 BP 120/84 H 124/77 H Blood Pressure Location Lt brachial Lt brachial Position Sitting Sitting Respiration 14 16 Pulse 56 L 75 Pulse Source Monitor NIBP Temp 97.9 F Pulse Oximetry (%) 97 Oxygen Delivery Method room air Intake Visit Reasons: 1 Y FU Proctologist Required: No Accompanied by: Self Is patient in pain?: No Allergies diphenhydramine (From Benadryl) Allergy (Verified 02/09/24 15:38) Swelling meperidine HCl (From Demerol) Allergy (Verified 02/09/24 15:38) Swelling Medications ???Medication ???Instructions ???Recorded ???Confirmed ???Type amlodipine 2.5 mg tablet 2.5 mg PO DAILY #90 tabs 02/09/24 02/09/24 Rx amlodipine 5 mg tablet 5 mg PO DAILY 3 months #90 tabs 02/09/24 02/09/24 Rx semaglutide 0.25 mg or 0.5 mg (2 0.25 mg (0.368 mL) subcut QWEEK 1 02/09/24 02/09/24 Rx mg/3 mL) subcutaneous pen injector month #1.84 mL (Ozempic) Have you fallen in the past year?: No PFSH Medical History Anxiety with depression Arthritis Back pain Cardiac murmur Cervical radiculopathy Elevated uric acid in blood Essential (primary) hypertension Hypersomnia, unspecified Hypertriglyceridemia Low back pain Obesity Preventative health care Restless leg Right shoulder strain Tingling Weight loss Surgical History History of appendectomy Family History Grandfather Myocardial infarction Aunt Cancer Mother , 61 Myocardial infarction, Onset Age: 61 Cause of Social History adopted: No household members: spouse housing: house number of children: 1 current occupational status: employed 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 pets and animals: No sexually active: Yes Smoking Status: Never smoker alcohol intake: never substance use type: does not use caffeine: Yes (1) Type: coffee what type of physical activity do you participate in: none seatbelt use: always do you feel safe at home: Yes ROS Const Const: Negative for fatigue, weakness, headache(s) or weight gain ENT ENT: Negative for headache(s), dizziness, Nosebleed/epistaxis or balance problems Cardio Chest Pain: No Palpitations: No Edema: Bilateral (moderate; w/prolonged standing) Muscle aches with walking: None Resp Respiratory: Negative for SOB with activity, SOB at rest or SOB orthopnea SOB lying down GI GI: Negative nausea, vomiting or heartburn Musc Musc: Negative for muscle aches/ myalgia, muscle weakness, joint pain or balance problems Neuro Neuro: Negative for dizziness, lightheadedness, near syncope, syncope, headache(s) or weakness Endo Endo: Negative for fatigue Cardiology Exam Const Appearance: cooperative, healthy appearing, comfortable and no acute distress Nutritional Appearance: well nourished and obese Orientation: alert, awake and oriented x3 Head Head: normal to inspection Ears: hearing grossly normal bilaterally Nose: external nose normal Face and Sinus: face symmetric Mouth: oral mucosae normal Eyes General: appearance normal, both eyes and all related structures Eyelids: eyelids normal EOM: EOM intact bilaterally Neck Neck: normal visual inspection and no JVD Carotids: normal carotid upstroke Chest Chest inspection: normal (more content not included)... Normal [facility] Internal Medicine Office Vis iton 12-25-2023 Internal Medicine Office Visit [facility] [address] [place] [address] [place] [address] OFFICE VISIT Date of Service: 12/25/23 MR#: [id number] Acct: [id number] Name: EMILY MARQUEZ KIKI Rep #: [id number] : 1965 Provider: Dr. Patt morgan MD Age/Sex: 58/F Location: [facility] [place] Status: Signed Intake Vital Signs 12/22/22 15:11 06/21/23 15:03 12/25/23 15:17 Height 5 ft 7 in 5 ft 7 in 5 ft 7 in Weight: 238 lb BMI 37.3 BP 120/84 H Blood Pressure Location Lt brachial Position Sitting Respiration 14 Pulse 56 L Pulse Source Monitor Temp 97.9 F Temp Source Temporal Pulse Oximetry (%) 97 Oxygen Delivery Method room air Intake Visit Reasons: yearly Chief Complaint: Yearly Proctologist Required: No Is patient in pain?: No Allergies diphenhydramine (From Benadryl) Allergy (Verified 12/25/23 15:11) Swelling meperidine HCl (From Demerol) Allergy (Verified 12/25/23 15:11) Swelling Medications ???Medication ???Instructions ???Recorded ???Confirmed ???Type amlodipine 2.5 mg tablet 2.5 mg PO DAILY #90 tabs 11/13/23 12/25/23 Rx amlodipine 5 mg tablet 5 mg PO DAILY 3 months #90 tabs 11/13/23 12/25/23 Rx PFSH Medical History (Updated 12/25/23 @ 16:[address] Patt Salamanca MD) Elevated uric acid in blood Preventative health care Essential (primary) hypertension Anxiety with depression Cervical radiculopathy Tingling Restless leg Arthritis Weight loss Back pain Right shoulder strain Obesity Low back pain Hypersomnia, unspecified Hypertriglyceridemia Cardiac murmur Surgical History History of appendectomy Family History Grandfather Myocardial infarction Aunt Cancer Mother , 61 Myocardial infarction, Onset Age: 61 Cause of Social History (Updated 12/25/23 @ 15:17 by Sia Gibson MA) adopted: No household members: spouse housing: house number of children: 1 current occupational status: employed 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 No acute concerns reported at this time. No significant changes in personal or family history since her last visit. History of hypertension, she states that her readings at home have been much lower. Taking medication as prescribed. Recent labs reviewed, slightly elevated uric acid, no history of gout. Last Colon cancer screening by [facility] said to have been a few years ago.Follows up with [facility], last mammogram said to be about 2 years ago. ROS Const Constitutional: No body ache, chills, excessive sweating, fatigue, fever(s), frequent falls, headache(s), snoring, weakness, sleep problems or change in appetite Eyes Eyes: No blurry vision, change in vision, bulging eyes, floaters, visual disturbances, eye pain or Light sensitivity ENT ENT: No abnormal hearing, ear or mastoid pain, tinnitus, balance problems, nosebleed/epistaxis, nasal congestion, headache(s), neck pain or sore throat Resp Respiratory: No cough, excessive phlegm production, pain on inspiration, shortness of breath, snoring or wheezing Cardio Cardiology: No chest pain at rest, chest pain with exertion, excessive sweating, shortness of breath, dyspnea on exertion, lightheadedness, orthopnea or palpitations Gastro GI: No abdominal pain, change in bowel habits, constipation, cramping, diarrhea, nausea/dyspepsia or vomiting Genitourinary-Female: No burning urination, painful urination, urinary incontinence, urinary frequency, suprapubic fullness, side pain, abnormal vaginal bleeding or pelvic pain Musc Musculoskeletal: No abnormal gait, joint pain, back pain, limited range of motion, loss of height, muscle cramps, neck pain or numbness Skin Skin: No dry skin, redness, excessive hair growth, yellowing of the eye, lesions, itchy eyes, rash or wounds Neuro Neurology: No abnormal gait, abnormal hearing, behavioral changes, unsteady gait/balance, weakness, frequent falls, headache(s), memory loss, numbness or visual disturbances Psych Psychiatric: No anxiety, No behavioral changes, No change in appetite, No depression, No memory loss and No Thoughts of harming yourself/Others Endo Endocrine: No cold intolerance, excessive sweating, fatigue, flushing, heat intolerance, increased thirst/drinking or increased hunger Aller/Imm Allergy/Immunologic: N (more content not included)... Normal [facility] CBC, Employee[employer] 12-22-2023 Absolute Lymph 2.27 X10 3/uL Normal 0.83-4.51 [facility] Comment on above: Performed By: #### L 400.0100, L500.2900, L100.0200 #### [facility] [address] [place], [address] Absolute Neut 2.4 X10 3/uL Normal 2.0-7.7 [facility] Comment on above: Performed By: #### L 400.0100, L500.2900, L100.0200 #### [facility] [address] [place], [address] Basophils/100 WBC (Bld) 1.1 % High 0-1 [facility] Comment on above: Performed By: #### L 400.0100, L500.2900, L100.0200 #### [facility] [address] [place], [address] Eosinophils/100 WBC (Bld) 3.7 % Normal 0-5 [facility] Comment on above: Performed By: #### L 400.0100, L500.2900, L100.0200 #### [facility] [address] [place], [address] Erythrocyte distribution width (RBC) [Ratio] 12.8 % Normal 11.6-14.6 [facility] Comment on above: Performed By: #### L 400.0100, L500.2900, L100.0200 #### [facility] [address] [place], [address] Hematocrit (Bld) [Volume fraction] 40.5 % Normal 37-47 [facility] Comment on above: Performed By: #### L 400.0100, L500.2900, L100.0200 #### [facility] [address] [place], [address] Hemoglobin (Bld) [Mass/Vol] 13.0 g/dL Normal 12.0-15.0 [facility] Comment on above: Performed By: #### L 400.0100, L500.2900, L100.0200 #### [facility] [address] [place], [address] Lymphocytes/100 WBC (Bld) 41.5 % High 19-41 [facility] Comment on above: Performed By: #### L 400.0100, L500.2900, L100.0200 #### [facility] [address] [place], [address] MCH (RBC) [Entitic mass] 28.6 pg Normal 27.0-32.0 [facility] Comment on above: Performed By: #### L 400.0100, L500.2900, L100.0200 #### [facility] [address] [place], [address] MCHC (RBC) [Mass/Vol] 32.1 g/dL Normal 32-36 [facility] Comment on above: Performed By: #### L 400.0100, L500.2900, L100.0200 #### [facility] [address] [place], [address] MCV (RBC) [Entitic vol] 89.0 fL Normal 81-99 [facility] Comment on above: Performed By: #### L 400.0100, L500.2900, L100.0200 #### [facility] [address] [place], [address] Monocytes/100 WBC (Bld) 9.5 % Normal 0-10 [facility] Comment on above: Performed By: #### L 400.0100, L500.2900, L100.0200 #### [facility] [address] [place], [address] Neutrophils/100 WBC (Bld) 43.8 % Low 47-70 [facility] Comment on above: Performed By: #### L 400.0100, L500.2900, L100.0200 #### [facility] [address] [place], [address] NRBC # 0.00 10 3/uL Normal 0-5 [facility] Comment on above: Performed By: #### L 400.0100, L500.2900, L100.0200 #### [facility] [address] [place], [address] Nucleated RBC (Bld) [#/Vol] 0 10*3/uL Normal 0-5 [facility] Comment on above: Performed By: #### L 400.0100, L500.2900, L100.0200 #### [facility] [address] [place], [address] Platelet mean volume (Bld) [Entitic vol] 9.7 fL Normal 6.2-12.0 [facility] Comment on above: Performed By: #### L 400.0100, L500.2900, L100.0200 #### [facility] [address] [place], [address] Platelets (Bld) [#/Vol] 306 10*3/uL Normal 150-450 [facility] Comment on above: Performed By: #### L 400.0100, L500.2900, L100.0200 #### [facility] [address] [place], [address] RBC (Bld) [#/Vol] 4.55 10*6/uL Normal 4.2-5.4 [facility] Comment on above: Performed By: #### L 400.0100, L500.2900, L100.0200 #### [facility] [address] [place], [address] RDW SD 41.8 fl Normal 35.1-43.9 [facility] Comment on above: Performed By: #### L 400.0100, L500.2900, L100.0200 #### [facility] [address] [place], [address] WBC (Bld) [#/Vol] 5.5 10*3/uL Normal 4.4-11.0 [facility] Comment on above: Performed By: #### L 400.0100, L500.2900, L100.0200 #### [facility] [address] [place], [address] Employee Profile[employer] 4 Albumin [Mass/Vol] 3.7 g/dL Normal 3.2-5.0 [facility] Comment on above: Performed By: #### L 400.0100, L500.2900, L100.0200 #### [facility] [address] [place], [address] Albumin/Globulin [Mass ratio] 0.9 {ratio} Normal 0.9-2.4 [facility] Comment on above: Performed By: #### L 400.0100, L500.2900, L100.0200 #### [facility] [address] [place], [address] ALK P 86 U/L Normal 45-117 [facility] Comment on above: Performed By: #### L 400.0100, L500.2900, L100.0200 #### [facility] [address] [place], [address] ALT [Catalytic activity/Vol] 30 U/L Normal 13-56 [facility] Comment on above: Performed By: #### L 400.0100, L500.2900, L100.0200 #### [facility] [address] [place], [address] AST [Catalytic activity/Vol] 25 U/L Normal 15-37 [facility] Comment on above: Performed By: #### L 400.0100, L500.2900, L100.0200 #### [facility] [address] [place], [address] Bilirubin [Mass/Vol] 0.40 mg/dL Normal 0.20-1.00 [facility] Comment on above: Result Comment: For patients on eltrombopag therapy, use of Dimension [place] TBIL is not recommended. Performed By: #### L 400.0100, L500.2900, L100.0200 #### [facility] [address] [place], [address] Bilirubin.direct [Mass/Vol] 0.12 mg/dL Normal 0.00-0.30 [facility] Comment on above: Performed By: #### L 400.0100, L500.2900, L100.0200 #### [facility] [address] [place], [address] BUN/CRE 18.7 RATIO Normal 10-20 [facility] Comment on above: Performed By: #### L 400.0100, L500.2900, L100.0200 #### [facility] [address] [place], [address] CA,Total 9.6 mg/dL Normal 8.5-10.1 [facility] Comment on above: Performed By: #### L 400.0100, L500.2900, L100.0200 #### [facility] [address] [place], [address] Chloride [Moles/Vol] 109 mmol/L High 98-107 [facility] Comment on above: Performed By: #### L 400.0100, L500.2900, L100.0200 #### [facility] [address] [place], [address] CHOL:HDL 2.90 Normal [facility] Comment on above: Performed By: #### L 400.0100, L500.2900, L100.0200 #### [facility] [address] [place], [address] Cholesterol [Mass/Vol] 193 mg/dL Normal 200 [facility] Comment on above: Result Comment: <200 mg/dL Desirable 200-240 mg/dL Borderline >240 mg/dL High Risk Performed By: #### L 400.0100, L500.2900, L100.0200 #### [facility] [address] [place], [address] Cholesterol in HDL [Mass/Vol] 67 mg/dL Normal [facility] Comment on above: Result Comment: The drugs N-Acetylcysteine and Metamizole may falsely depress this assay. Reference Range HDL <40 mg/dL Low HDL Cholesterol HDL >or= 60 mg/dL High HDL Cholesterol Performed By: #### L 400.0100, L500.2900, L100.0200 #### [facility] [address] [place], [address] Cholesterol in LDL [Mass/Vol] 104 mg/dL Normal 0-130 [facility] Comment on above: Performed By: #### L 400.0100, L500.2900, L100.0200 #### [facility] [address] [place], [address] Cholesterol in VLDL [Mass/Vol] 22 mg/dL Normal 5-40 [facility] Comment on above: Performed By: #### L 400.0100, L500.2900, L100.0200 #### [facility] [address] [place], [address] CO2 [Moles/Vol] 23.0 mmol/L Normal 21.0-32.0 [facility] Comment on above: Performed By: #### L 400.0100, L500.2900, L100.0200 #### [facility] [address] [place], [address] Creatinine [Mass/Vol] 0.80 mg/dL Normal 0.55-1.02 [facility] Comment on above: Result Comment: The validity of the calculated GFR GFRAA in patients over 70 years has not been determined. Clinical correlation is essential. Performed By: #### L 400.0100, L500.2900, L100.0200 #### [facility] [address] [place], [address] EST GFR - AA 95 mL/min Normal >60 [facility] Comment on above: Result Comment: Afri can Greek GFR Calc Performed By: #### L 400.0100, L500.2900, L100.0200 #### [facility] [address] [place], [address] GAP 7 Normal 5-15 [facility] Comment on above: Performed By: #### L 400.0100, L500.2900, L100.0200 #### [facility] [address] [place], [address] GFR/1.73 sq M.predicted among non-blacks MDRD (S/P/Bld) [Vol rate/Area] 79 mL/min/{1.73_m2} Normal >60 [facility] Comment on above: Result Comment: Non- GFR Calc Performed By: #### L 400.0100, L500.2900, L100.0200 #### [facility] [address] [place], [address] Globulin (S) [Mass/Vol] 4.1 g/dL Normal 2.2-4.2 [facility] Comment on above: Performed By: #### L 400.0100, L500.2900, L100.0200 #### [facility] [address] [place], [address] Glucose [Mass/Vol] 114 mg/dL High 74-106 [facility] Comment on above: Result Comment: Fast ing Glucose result from 100 to 125 mg/dL suggests IMPAIRED HOMEOSTASIS per A.D.A. criteria. Performed By: #### L 400.0100, L500.2900, L100.0200 #### [facility] [address] [place], [address] LDH 230 U/L Normal 84-246 [facility] Comment on above: Performed By: #### L 400.0100, L500.2900, L100.0200 #### [facility] [address] [place], [address] Phosphate [Mass/Vol] 3.4 mg/dL Normal 2.5-4.9 [facility] Comment on above: Performed By: #### L 400.0100, L500.2900, L100.0200 #### [facility] [address] [place], [address] Potassium [Moles/Vol] 4.1 mmol/L Normal 3.5-5.1 [facility] Comment on above: Performed By: #### L 400.0100, L500.2900, L100.0200 #### [facility] [address] [place], [address] Sodium [Moles/Vol] 139 mmol/L Normal 136-145 [facility] Comment on above: Performed By: #### L 400.0100, L500.2900, L100.0200 #### [facility] [address] [place], [address] T PROT 7.8 g/dL Normal 6.4-8.2 [facility] Comment on above: Performed By: #### L 400.0100, L500.2900, L100.0200 #### [facility] [address] [place], [address] Triglyceride [Mass/Vol] 109 mg/dL Normal [facility] Comment on above: Result Comment: The drugs N-Acetylcysteine and Metamizole may falsely depress this assay. Serum Triglycerides Reference Interval Normal <150 mg/dL Borderline high 150 - 199 mg/dL High 200 - 499 mg/dL Very High > or = 500 mg/dL Performed By: #### L 400.0100, L500.2900, L100.0200 #### [facility] [address] [place], [address] Urea nitrogen [Mass/Vol] 15 mg/dL Normal 7-18 [facility] Comment on above: Performed By: #### L 400.0100, L500.2900, L100.0200 #### [facility] [address] [place], [address] URIC 6.1 mg/dL High 2.6-6.0 [facility] Comment on above: Result Comment: The drugs N-Acetylcysteine and Metamizole may falsely depress this assay. Performed By: #### L 400.0100, L500.2900, L100.0200 #### [facility] [address] [place], [address] Urinalysis, Employeeon 12-21 BILIRUBIN URINE Normal Negative [facility] Comment on above: Order Comment: CLEAN CATCH Result Comment: NOT WANTED Performed By: #### L 400.0100, L500.2900, L100.0200 #### [facility] [address] [place], [address] Clarity (U) Normal Clear [facility] Comment on above: Order Comment: CLEAN CATCH Result Comment: NOT WANTED Performed By: #### L 400.0100, L500.2900, L100.0200 #### [facility] [address] [place], [address] Color (U) Normal Yellow [facility] Comment on above: Order Comment: CLEAN CATCH Result Comment: NOT WANTED Performed By: #### L 400.0100, L500.2900, L100.0200 #### [facility] [address] [place], [address] GLUCOSE, UR Normal Normal [facility] Comment on above: Order Comment: CLEAN CATCH Result Comment: NOT WANTED Performed By: #### L 400.0100, L500.2900, L100.0200 #### [facility] [address] [place], [address] KETONE UR Normal Negative [facility] Comment on above: Order Comment: CLEAN CATCH Result Comment: NOT WANTED Performed By: #### L 400.0100, L500.2900, L100.0200 #### [facility] [address] [place], [address] LEUK ESTERASE Normal Negative [facility] Comment on above: Order Comment: CLEAN CATCH Result Comment: NOT WANTED Performed By: #### L 400.0100, L500.2900, L100.0200 #### [facility] [address] [place], [address] Nitrite Ql (U) Normal Negative [facility] Comment on above: Order Comment: CLEAN CATCH Result Comment: NOT WANTED Performed By: #### L 400.0100, L500.2900, L100.0200 #### [facility] [address] [place], [address] OCCULT BLOOD-UR Normal Negative [facility] Comment on above: Order Comment: CLEAN CATCH Result Comment: NOT WANTED Performed By: #### L 400.0100, L500.2900, L100.0200 #### [facility] [address] [place], [address] pH UR Normal 5.0 - 8.0 [facility] Comment on above: Order Comment: CLEAN CATCH Result Comment: NOT WANTED Performed By: #### L 400.0100, L500.2900, L100.0200 #### [facility] [address] [place], [address] PROT DIPSTX Normal Negative [facility] Comment on above: Order Comment: CLEAN CATCH Result Comment: NOT WANTED Performed By: #### L 400.0100, L500.2900, L100.0200 #### [facility] [address] [place], [address] SP.GR. DIPSTX Normal 1.002-1.030 [facility] Comment on above: Order Comment: CLEAN CATCH Result Comment: NOT WANTED Performed By: #### L 400.0100, L500.2900, L100.0200 #### [facility] [address] [place], [address] UR Preservative Normal [facility] Comment on above: Order Comment: CLEAN CATCH Result Comment: NOT WANTED Performed By: #### L 400.0100, L500.2900, L100.0200 #### [facility] [address] [place], [address] UROBILI Normal Normal [facility] Comment on above: Order Comment: CLEAN CATCH Result Comment: NOT WANTED Performed By: #### L 400.0100, L500.2900, L100.0200 #### [facility] [address] [place], [address] Cerv Spine 2 or 3 Viewson Cerv Spine 2 or 3 Views [facility] [address] [place] [address] Cerv Spine 2 or 3 Views MR#: [id number] Acct: [id number] Name: EMILY MARQUEZ KIKI Rep #: [id number] : 1965 F 58 From: Russ Cervantes PCP: Dr. Patt Salamanca MD Status: REG CLI Study: Cerv Spine 2 or 3 Views Date of Exam: 07/05/23 Exam# [id number] Ordering Dr: Sanket Evans DO [id number] INDICATION: Pain EXAMINATION/TECHNIQUE: X-RAY - XR Spine Cervical 4 or 5 Views COMPARISON: Prior study dated: 09/27/2019 FINDINGS: VERTEBRAE: Preserved vertebral body height. No fracture. No spondylolisthesis. Straightening of the cervical spine. No significant facet arthropathy. DISCS: Narrowing of C5-C6 and C6-7 disc spaces with endplate spondylosis unchanged. NECK SOFT TISSUES: No prevertebral soft tissue widening. LUNG APICES: Clear. RAD/Cerv Spine 2 or 3 Views IMPRESSION: Degenerative changes of the cervical spine unchanged.. Electronically Signed: Russ Yusuf MD at 11:16 EDT , CC: Dr. Patt Salamanca MD; Dr. Sanket Evans DO Pc Installation Engineer: Signed Normal [facility] Orthopedic Visit Reporton Orthopedic Visit Report [facility] [address] [place] [address] OFFICE VISIT Date of Service: 07/05/23 MR#: [id number] Acct: [id number] Name: EMILY MARQUEZ KIKI Rep #: [id number] : 1965 Provider: Dr. Sanket walker DO Age/Sex: 58/F Location[place] [facility] [place] Status: Signed Intake Vital Signs 06/21/23 15:03 Height 5 ft 7 in Weight: 237 lb BMI 37.0 Intake Visit Reasons: CERVICAL SPINE Chief Complaint: cervical MRI results Is patient in pain?: Yes (right neck and arm ) Pain scale (1-10): 8 Allergies diphenhydramine [From Benadryl] Allergy (Verified 07/05/23 15:23) Swelling meperidine HCl [From Demerol] Allergy (Verified 07/05/23 15:23) Swelling Medications amlodipine 2.5 mg tablet 2.5 mg PO DAILY #90 tabs 11/21/22 [Rx Confirmed 07/05/23] amlodipine 5 mg tablet 5 mg PO DAILY 3 months #90 tabs 11/21/22 [Rx Confirmed 07/05/23] PFSH Medical History Anxiety with depression Arthritis Back pain Cardiac murmur Cervical radiculopathy Essential (primary) hypertension Hypersomnia, unspecified Hypertriglyceridemia Low back pain Obesity Preventative health care Restless leg Right shoulder strain Tingling Weight loss Surgical History History of appendectomy Family History Grandfather Myocardial infarction Aunt Cancer Mother , 61 Myocardial infarction, Onset Age: 61 Cause of Social History household members: spouse housing: house current occupational status: employed Smoking Status: Never smoker alcohol intake: never substance use type: does not use what type of physical activity do you participate in: none seatbelt use: always do you feel safe at home: Yes HPI CERVICAL SPINE Chief Complaint: cervical MRI review Details: This documentation accurately reflects the service provided and the decisions made by me, Dr. Sanket Evans, DO 07/05/23 1520. Part of today???s visit was documented by [ ], acting as scribe. EMILY MARQUEZ is a 58 year old F here today for cervical MRI and Xray review. Pt. advises she continues to experience right neck and arm pain that extends to her finger tips as well as numbness, tingling and burning. Emily returns for review of her cervical MRI scan. I went over it and even compared it with her old one from 3 years ago. Her herniated disc at C5-6 on the right side in the central portion is larger than it was then given her a severe stenosis at C5-6 with foraminal stenosis on the right. The 6 7 herniation is still there and perhaps a little bit bigger more to the right side. I explained to her that the issue here is not as much pain as it is the pressure on the spinal cord. Long-term that is not a good thing as it can proceed to a myelopathy which is caused by myelomalacia softening of the spinal cord just below the compression. I told her that that is not an emergency that it be done in a hurry however certainly over the next several weeks or at the most 2 or 3 months it should be addressed and it should probably be decompressed. I explained to her that I am retiring in the [id number] future in the end of September and that I probably cannot really added onto my schedule however Dr. Macias can perform the surgery at any time. I answered all of her questions. I will see her on a as needed basis. Coding Level of Care Code Off vis,est,level 3 Diagnoses Herniation of intervertebral disc at C5-C6 level M50.222 Herniation of intervertebral disc at C6-C7 level M50.223 Time Spent (min) 25 Assessment and Plan Assessment and Plan (1) Herniation of intervertebral disc at C5-C6 level: Status: Acute (2) Herniation of intervertebral disc at C6-C7 level: Status: Acute Orders: Orders Cerv Spine 2 or 3 Views Today M50.20 - Other cervical disc displacement, unspecified cervical region, M50.222 - Other cervical disc displacement at C5-C6 level, M50.223 - 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 07/05/23 1616 Date Sanket Serrato Signature: Date (if applicable) CC: Dr. Patt Salamanca MD Normal [facility] Spine Cervical (Routine)on 06-30-2023 Spine Cervical (Routine) [facility] [address] [place] [address] Spine Cervical (Routine) MR#: [id number] Acct: [id number] Name: EMILY MARQUEZ Rep #: [id number] : 1965 F 58 From: Milton Chandler MD PCP: Dr. Patt Salamanca MD Status: REG CLI Study: Spine Cervical (Routine) Date of Exam: Exam# [id number] Ordering Dr: Sanket Evans DO [id number] STUDY: MRI CERVICAL SPINE WITHOUT CONTRAST REASON FOR EXAM: Female, 58 years old. neck pain TECHNIQUE: Standardized fat and water weighted pulse sequences were obtained in the sagittal and axial planes. COMPARISON: November 25, 2019 FINDINGS: Normal foramen magnum and brainstem-cervical cord junction. Normal craniovertebral junction. Normal anterior atlantoaxial articulation. Normal odontoid process. Loss of cervical lordosis possibly due to muscle spasm or positioning artifact. No evidence for acute fracture or subluxation.. Interosseous hemangioma within C7 vertebral body. C2-3: Normal endplates. Normal disc height, signal and morphology. Normal central canal and intervertebral neural foramina. C3-4: Normal endplates. Normal disc height, signal and morphology. Normal central canal and intervertebral neural foramina. C4-5: Normal endplates. Normal disc height, signal and morphology. Normal central canal and intervertebral neural foramina. C5-6: Narrowed disc space and minor bulging disc osteophyte complex in association with broad-based large right paracentral/posterolat eral disc extrusion with mild superior migration of disc fragment narrowing the spinal canal and compressing the cord on the right there is also severe right neural foraminal stenosis secondary to bony hypertrophy and mild to moderate narrowing on the left. C6-7: Normal endplates. Narrowed disc space and prominent right paracentral/posterolat eral disc protrusion narrowing the spinal canal and compressing the cord on the right.. Moderate to severe right neural foraminal stenosis and mild to moderate narrowing on the left secondary to bony hypertrophy. C7-T1: Normal endplates. Normal disc height, signal and morphology. Normal central canal and intervertebral neural foramina. Normal cervical cord. Normal visualized soft tissue structures. Findings are not changed appreciably since prior exam MRI/Spine Cervical (Routine) IMPRESSION: Spinal stenosis and cord compression more severe on the right C5-6 and C6-7 secondary to disc protrusions and mild bony hypertrophy. Electronically Signed: Milton Chandler MD at 17:32 EDT Reading Location ID and State: [address] [place] [address] Tel , Service support , CC: Dr. Patt Salamanca MD; Dr. Sanket Evans DO Pc Installation Engineer: Signed Normal [facility] Orthopedic Visit Reporton Orthopedic Visit Report [facility] [address] [place] [address] OFFICE VISIT Date of Service: 06/21/23 MR#: [id number] Acct: [id number] Name: EMILY MARQUEZ KIKI Rep #: [id number] : 1965 Provider: Dr. Sanket walker DO Age/Sex: 58/F Location: [facility] [place] Status: Signed Intake Vital Signs 01/10/23 15:09 06/21/23 15:03 Height 5 ft 7 in 5 ft 7 in Weight: 237 lb BMI 37.0 Intake Visit Reasons: Neck pain Chief Complaint: right neck, right shoulder pain Accompanied by: Self Is patient in pain?: Yes Pain scale (1-10): 9 Allergies diphenhydramine [From Benadryl] Allergy (Verified 06/21/23 15:09) Swelling meperidine HCl [From Demerol] Allergy (Verified 06/21/23 15:09) Swelling Medications amlodipine 2.5 mg tablet 2.5 mg PO DAILY #90 tabs 11/21/22 [Rx Confirmed 06/21/23] amlodipine 5 mg tablet 5 mg PO DAILY 3 months #90 tabs 11/21/22 [Rx Confirmed 06/21/23] oxycodone-acetaminophe n 5 mg-325 mg tablet 1 tab PO Q6H PRN pain 10 days #40 tabs 06/21/23 [Rx Confirmed 06/21/23] PFSH Medical History Anxiety with depression Arthritis Back pain Cardiac murmur Cervical radiculopathy Essential (primary) hypertension Hypersomnia, unspecified Hypertriglyceridemia Low back pain Obesity Preventative health care Restless leg Right shoulder strain Tingling Weight loss Surgical History History of appendectomy Family History Grandfather Myocardial infarction Aunt Cancer Mother , 61 Myocardial infarction, Onset Age: 61 Cause of Social History household members: spouse housing: house current occupational status: employed Smoking Status: Never smoker alcohol intake: never substance use type: does not use what type of physical activity do you participate in: none seatbelt use: always do you feel safe at home: Yes HPI Neck pain Details: This documentation accurately reflects the service provided and the decisions made by me, Dr. Sanket Evans, DO 06/21/23 1500. Part of today???s visit was documented by Kimmie RAMIREZ , acting as scribe. EMILY MARQUEZ is a 58 year old F here today for Neck pain. Patient states that she has numbness, tingling and radiation going down her right arm. Patient states it starts right before the elbow and goes down to the finger tips. Patient has gone to Physical therapy and they suggested her to come here and see some one before they go any further. Patient went to the now clinic when this first started a couple weeks ago. Patient states they did no imaging. Patient had a injury to it a few years ago to her neck she had a Patient pull on her and it did something to her neck. Patient denies any injury to it now. Patient use ice and it does help her. Patient is taking Tylenol for her pain. Patient hasn't had any previous injection to her neck. Emily returns after not having been seen in almost 3-1/2 years. For about 3 weeks now she has had severe pain in the right side of the neck that radiates all the way down the right arm in a classic C6 dermatome. The pain has been intractable. When I saw her 3 and half years ago she had similar symptoms though not near as bad. I did review the old MRI scan that she had back in 2019 and indeed she had herniated disks then at C5-6 and C6-7 most of the right side. I suspect however they have gotten worse. At the time she did have not have any neurological deficit. On examination now she has very positive Spurling's to the right side she will not extend her head at all as it causes severe pain down the arm. She has some weakness of the extensors of the wrist on the right as compared to the left. Brachioradialis reflex is almost absent it is 2+ on the left. The biceps is almost absent on the right also and its brisk and 2+ on the left. Triceps are both 1+ and equal bilaterally. She has no long tract signs. Clonus is absent and Babinski's are downgoing. Because her condition has changed significantly for the worse in 3 and half years we will order a new MRI scan of the cervical spine. In addition I would like AP lateral cervical x-ray when she returns to review her MRI scan. I will make further recommendations at that time. Coding Level of Care Code Off vis,est,level 3 Diagnoses Neck pain M54.2 Herniation of intervertebral disc at C6-C7 level M50.223 Herniation of intervertebral disc at C5-C6 level M50.222 Time Spent (min) 25 Assessment and Plan Assessment and Plan (1) Neck pain: (2) Herniation of intervertebral disc at C6-C7 level: Status: Acute (3) Herniation of intervertebral disc at C5-C6 (more content not included)... Normal [facility] Final Surgical Pathology Rep [facility] 04-21-2023 Final Surgical Pathology Report . Pathology Reports Accession: Collected Date/Time: Received Date/Time: Pathologist: [id number] 04/18/2023 15:36 EST 04/20/2023 07:42 JAZZY SHEN MD Final Surgical Pathology Report DIAGNOSIS: ENDOMETRIAL BIOPSY: - SUPERFICIAL FRAGMENTS OF PROLIFERATIVE ENDOMETRIUM - NEGATIVE FOR HYPERPLASIA OR MALIGNANCY CLINICAL INFORMATION: POSTMENOPAUSAL BLEEDING, SCREENING FOR BREAST CANCER, SCREENING FOR CERVICAL CANCER Procedure: ENDOMETRIAL BX Preoperative diagnosis: ABNORMAL BLEEDING Postoperative diagnosis: SAME ABOVE SPECIMEN: A ENDOMETRIUM GROSS DESCRIPTION: All parts labelled with patient name and [id number] Received in formalin labeled undesignated are multiple mazariegos-pink and hemorrhagic tissue fragments aggregating 0.1 cm. TS-1 Cmamy Figueroa, Grossing Product/Industry Consultant/ Dr. Wilver Ingram, Pathologist Dictated by Cammy Figueroa MICROSCOPIC DESCRIPTION: The microscopic examination is performed, except in the case of Gross Only. Electronically Signed by Pathology Report verified by [facility] JAZZY LYON Sign out Date: 04/21/2023 08:48 Performing Lab: [facility], [address] [place] [address] Pathology Dept Disclaimer If ancillary studies were utilized, the following Laboratory Developed Test (LDT) disclaimer will apply: Under CLIA requirements, [facility] Pathology Laboratory is qualified to perform high complexity testing. For all ancillary stains, positive and negative controls stain appropriately. Performance characteristics of immunohistochemical and chromogenic in-situ hybridization tests have been determined by [facility] Pathology Laboratory. These tests are used for clinical purposes, They should not be regarded as investigational or for research. Normal [facility] Cytology Reporton 2023 [facility] Cytology Report . Pathology Reports Accession: Collected Date/Time: Received Date/Time: Pathologist: [id number] 04/18/2023 15:30 EST 04/19/2023 18:00 EST [facility] Report SPECIMEN: Specimen Description: Liquid Prep w/ HPV Specimen: Cervical/Endocervical Screening or Diagnostic: Screening RELEVANT HISTORY: LMP: 03/20/2023 Other clinical information: Postmenopausal bleeding SPECIMEN ADEQUACY: SATISFACTORY FOR EVALUATION Endocervical/Transform ational zone component present INTERPRETATION/RESULTS : NEGATIVE FOR INTRAEPITHELIAL LESION OR MALIGNANCY HIGH RISK HPV TESTING: Event Code Result HPV Interp See Interp HPVN HPV Interp Text: High Risk HPV Typing: NEGATIVE HPV types 16, 18, 31, 33, 35, 39, 45, 51, 52, 56, 58, 59, 66 and 68 DNA were undetectable or below the pre-set threshold. The mireille High-Risk HPV DNA Test is not intended for use as a screening device for Pap normal women under age 30 and is not intended to substitute for regular Pap screening. The mireille High-Risk HPV DNA Test is designed to augment existing methods for the detection of cervical disease and should be used in conjunction with clinical information derived from other diagnostic and screening tests, physical examinations and full medical history in accordance with appropriate patient management procedures. NOTE: A negative result does not preclude the presence of HPV infection because results depend on adequate specimen collection, absence of inhibitors and sufficient DNA to be detected. As of: 04/21/23 16:02 EST COMMENT: This Pap Test was successfully processed and evaluated with the assistance of the [employer] ThinPrep Test Imaging System. Pathology Reports Accession: Collected Date/Time: Received Date/Time: Pathologist: [id number] 04/18/2023 15:30 EST 04/19/2023 18:00 EST Electronically Signed by Pathology report verified by [facility] Screened by: [place] Electronically signed by Katy SAM (ASCP) Sign-Out Date: 04/21/2023 16:02 Performing Lab: [facility], [address] [place] [address] Pathology Dept Disclaimer The Pap test is a screening test for cervical cancer. As evidenced by published data, it is subject to both inherent false negative and false positive results. Your patient's results should be interpreted in context with pertinent clinical history including gynecological examination. Normal [facility] HPVon 04-21-2023 HPV Interp Normal See [facility] HPVN [facility] Comment on above: Order Comment: Order placed by AP_HPV_ORDER rule from [id number] Result Comment: High Risk HPV Typing: NEGATIVE HPV types 16, 18, 31, 33, 35, 39, 45, 51, 52, 56, 58, 59, 66 and 68 DNA were undetectable or below the pre-set threshold. The mireille High-Risk HPV DNA Test is not intended for use as a screening device for Pap normal women under age 30 and is not intended to substitute for regular Pap screening. The mireille High-Risk HPV DNA Test is designed to augment existing methods for the detection of cervical disease and should be used in conjunction with clinical information derived from other diagnostic and screening tests, physical examinations and full medical history in accordance with appropriate patient management procedures. NOTE: A negative result does not preclude the presence of HPV infection because results depend on adequate specimen collection, absence of inhibitors and sufficient DNA to be detected. See Interp HPVN Performed By: #### H PV #### [facility] [address] [place] [id number] HPV Source Cervix Normal [facility] Comment on above: Order Comment: Order placed by AP_HPV_ORDER rule from [id number] Performed By: #### H PV #### [facility] [address] [place] [id number] LABORATORYOrdered By: Graciela Tian on 04-18-2023 HPV Interp High Risk HPV Typing : NEGATIVEHPV types 16, 18, 31, 33, 35, 39, 45, 51, 52, 56, 58, 59, 66 and 68 DNA wereundetectable or below the pre-set threshold.The mireille High-Risk HPV DNA Test is not intended for use as a screening device forPap normal women under age 30 and is not intended to substitute for regular Papscreening.The mireille High-Risk HPV DNA Test is designed to augment existing methods for thedetection of cervical disease and should be used in conjunction with clinicalinformation derived from other diagnostic and screening tests, physical examinationsand full medical history in accordance with appropriate patient managementprocedures.N OTE: A negative result does not preclude the presence of HPV infection because resultsdepend on adequate specimen collection, absence of inhibitors and sufficientDNA to be detected. Normal See Interp HPVN Auto Viro/Sero SS Specimen source Nom (Unsp spec) Cervix (04/18/23 3:30 PM) Normal Auto Viro/Sero SS No Panel InformationOrdered By: Kourtney Mosquera on 03-24-2023 Follicle Stimulating Hormone 60.9 mIU/mL [facility] Comment on above: NORMAL REFERENCE RAN GES FEMALE FOLLICULAR 2.3 - 12.6 mIU/mL MID-CYCLE PEAK 5.2 - 17.5 mIU/mL LUTEAL 1.7 - 12.9 mIU/mL POST-MENOPAUSAL ON MHT 5.9 - 72.8 mIU/mL NOT ON MHT 12.7 - 132.2 mlU/mL MALE 0.7 - 10.8 mIU/mL Luteinizing Hormone 35.8 mIU/mL [facility] Comment on above: NORMAL REFERENCE RAN GES FEMALE FOLLICULAR 1.9 - 26.2 mIU/mL MID-CYCLE PEAK 22.8 - 76.1 mIU/mL LUTEAL 0.6 - 16.6 mIU/mL POST-MENOPAUSAL ON MHT 1.1 - 52.4 mIU/mL NOT ON MHT 8.6 - 61.8 mIU/mL MALE 1.2 - 10.6 mIU/mL Absolute lymphocyte countOrd ered By: HEALTH ASSESSMENT on 01-09-2023 Lymphocytes Auto (Unsp spec) [#/Vol] 2.25 10*3/uL 0.83-4.51 [facility] Absolute reticulocyte countO rdered By: HEALTH ASSESSMENT on 01-09-2023 Reticulocytes (Bld) [#/Vol] 0.00 10*3/uL 0-5 [facility] Basophil percentageOrdered B y: HEALTH ASSESSMENT on 01-09-2023 Basophil percentage 3.4 mg/dL 2.5-4.9 [facility] Bilirubin [Mass/Vol] 0.50 mg/dL 0.20-1.00 [facility] Comment on above: For patients on eltr ombopag therapy, use of Dimension [place] TBIL is not recommended. Chloride [Moles/Vol] 107 mmol/L 98-107 [facility] Cholesterol [Mass/Vol] 162 mg/dL <200 [facility] Comment on above: <200 mg/dL Desirable 200-240 mg/dL Borderline >240 mg/dL High Risk Glucose [Mass/Vol] 104 mg/dL 74-106 [facility] Comment on above: Fasting Glucose resu lt from 100 to 125 mg/dL suggests IMPAIRED HOMEOSTASIS per A.D.A. criteria. LDH [Catalytic activity/Vol] 195 U/L 84-246 [facility] Neutrophils (Bld) [#/Vol] 2.8 10*3/uL 2.0-7.7 [facility] Potassium [Moles/Vol] 3.8 mmol/L 3.5-5.1 [facility] Protein [Mass/Vol] 7.7 g/dL 6.4-8.2 [facility] Sodium [Moles/Vol] 141 mmol/L 136-145 [facility] Triglyceride [Mass/Vol] 112 mg/dL <199 [facility] Comment on above: The drugs N-Acetylcy steine and Metamizole may falsely depress this assay.Serum Triglycerides Reference Interval Normal <150 mg/dL Borderline high 150 - 199 mg/dL High 200 - 499 mg/dL Very High > or = 500 mg/dL WBC (Bld) [#/Vol] 6.0 10*3/uL 4.4-11.0 [facility] Blood erythrocytes count (nu mber/volume)Ordered By: HEALTH ASSESSMENT on 01-09-2023 RBC (Bld) [#/Vol] 4.74 10*6/uL 4.2-5.4 [facility] Blood hemoglobin measurement (mass/volume)Ordered By: HEALTH ASSESSMENT on 01-09-2023 Hemoglobin (Bld) [Mass/Vol] 13.7 g/dL 12.0-15.0 [facility] Blood platelet mean volumeOr dered By: HEALTH ASSESSMENT on 01-09-2023 Platelet mean volume (Bld) [Entitic vol] 10.3 fL 6.2-12.0 [facility] Determination of erythrocyte mean corpuscular volume (MCV)Ordered By: HEALTH ASSESSMENT on 01-09-2023 MCV (RBC) [Entitic vol] 91.4 fL 81-99 [facility] Direct bilirubinOrdered By: HEALTH ASSESSMENT on 01-09-2023 Bilirubin.direct [Mass/Vol] 0.14 mg/dL 0.00-0.30 [facility] Hematocrit Auto (Bld) [Volum e fraction]Ordered By: HEALTH ASSESSMENT on 01-09-2023 Hematocrit (Bld) [Volume fraction] 43.3 % 37-47 [facility] Laboratory - Chemistry and C hemistry - challengeOrdered By: HEALTH ASSESSMENT on 01-09-2023 ALP [Catalytic activity/Vol] 80 U/L 45-117 [facility] ALT [Catalytic activity/Vol] 25 U/L 13-56 [facility] Cholesterol.total/Cho lesterol in HDL [Mass ratio] 3.10 {ratio} [facility] CO2 [Moles/Vol] 28.0 mmol/L 21.0-32.0 [facility] Globulin (S) [Mass/Vol] 3.9 g/dL 2.2-4.2 [facility] Urea nitrogen/Creatinine [Mass ratio] 13.4 mg/mg 10-20 [facility] Laboratory - Hematology and Cell countsOrdered By: HEALTH ASSESSMENT on 01-09-2023 Erythrocyte distribution width (RBC) [Entitic vol] 43.7 fL 35.1-43.9 [facility] Erythrocyte distribution width (RBC) [Ratio] 12.9 % 11.6-14.6 [facility] MCH (RBC) [Entitic mass] 28.9 pg 27.0-32.0 [facility] Nucleated RBC/100 WBC (Bld) [Ratio] 0 % 0-5 [facility] MCHC Auto (RBC) [Mass/Vol]Or dered By: HEALTH ASSESSMENT on 01-09-2023 MCHC (RBC) [Mass/Vol] 31.6 g/dL 32-36 [facility] No Panel InformationOrdered By: HEALTH ASSESSMENT on 01-09-2023 Estimated GFR (MDRD) Amer 76 mL/min >60 [facility] Comment on above: GFR Calc Estimated GFR (MDRD) Non-Af Amer 63 mL/min >60 [facility] Comment on above: Non- GFR Calc Platelets bldOrdered By: [facility] ASSESSMENT on 01-09-2023 Platelets (Bld) [#/Vol] 309 10*3/uL 150-450 [facility] Segmented neutrophils/100 WB C Auto (Bld)Ordered By: HEALTH ASSESSMENT on 01-09-2023 Segmented neutrophils/100 WBC (Bld) 47.2 % 47-70 [facility] Serum or plasma albumin spencer urement (mass/volume)Ordered By: HEALTH ASSESSMENT on 01-09-2023 Albumin [Mass/Vol] 3.8 g/dL 3.2-5.0 [facility] Serum or plasma albumin/glob ulin mass ratioOrdered By: HEALTH ASSESSMENT on 01-09-2023 Albumin/Globulin [Mass ratio] 1.0 {ratio} 0.9-2.4 [facility] Serum or plasma calcium spencer urement (mass/volume)Ordered By: HEALTH ASSESSMENT on 01-09-2023 Calcium [Mass/Vol] 8.9 mg/dL 8.5-10.1 [facility] Serum or plasma cholesterol in HDL measurement (mass/volume)Ordered By: HEALTH ASSESSMENT on 01-09-2023 Cholesterol in HDL [Mass/Vol] 53 mg/dL >40 [facility] Comment on above: The drugs N-Acetylcy steine and Metamizole may falsely depress this assay. Reference Range HDL <40 mg/dL Low HDL Cholesterol HDL >or= 60 mg/dL High HDL Cholesterol Serum or plasma cholesterol in VLDL measurement (mass/volume)Ordered By: HEALTH ASSESSMENT on 01-09-2023 Cholesterol in VLDL [Mass/Vol] 22 mg/dL 5-40 [facility] Serum or plasma creatinine m easurement (mass/volume)Ordered By: HEALTH ASSESSMENT on 01-09-2023 Creatinine [Mass/Vol] 0.97 mg/dL 0.55-1.02 [facility] Comment on above: The validity of the calculated GFR & GFRAA in patients over 70 years has not been determined. Clinical correlation is essential. Serum or plasma low density lipoprotein (LDL) cholesterol measurement (mass/volume)Ordered By: HEALTH ASSESSMENT on 01-09-2023 Cholesterol in LDL [Mass/Vol] 87 mg/dL 0-130 [facility] Serum or plasma urea nitroge n measurement (mass/volume)Ordered By: HEALTH ASSESSMENT on 01-09-2023 Urea nitrogen [Mass/Vol] 13 mg/dL 7-18 [facility] Serum or plasma uric acid me asurement (mass/volume)Ordered By: HEALTH ASSESSMENT on 01-09-2023 Urate [Mass/Vol] 6.0 mg/dL 2.6-6.0 [facility] Comment on above: The drugs N-Acetylcy steine and Metamizole may falsely depress this assay. Thin prep Papanicolaou smear with manual screeningOrdered By: HEALTH ASSESSMENT on 01-09-2023 Thin prep Papanicolaou smear with manual screening 17 U/L 15-37 [facility] Thin prep Papanicolaou smear with manual screening 6 5-15 [facility] Lab Report: Basic Metabolic Profile (BMP)on 09-08-2016 Anion gap 9 mmol/L Invalid Interpretation Code - [facility] Work Phone: [phone] BUN/Creatinine Ratio 11.9 RATIO Invalid Interpretation Code 02-03 [facility] Work Phone: [phone] Calcium 8.8 mg/dL Invalid Interpretation Code 8.5-10.1 [facility] Work Phone: Chloride 107 mmol/L Invalid Interpretation Code 98-107 [facility] Work Phone: [phone] CO2 24.0 mmol/L Invalid Interpretation Code 21.0-32.0 [facility] Work Phone: [phone] Creatinine 0.84 mg/dL Invalid Interpretation Code 0.55-1.02 [facility] Work Phone: [phone] eGFR (non-black) 76 mL/min/{1.73_m2} Invalid Interpretation Code >60 [facility] Work Phone: [phone] eGFR (non-black) 92 mL/min/{1.73_m2} Invalid Interpretation Code >60 [facility] Work Phone: [phone] Glucose 90 mg/dL Invalid Interpretation Code 70-110 [facility] Work Phone: [phone] Potassium 3.9 mmol/L Invalid Interpretation Code 3.5-5.1 [facility] Work Phone: [phone] Sodium 140 mmol/L Invalid Interpretation Code 136-145 [facility] Work Phone: [phone] Urea nitrogen 10 mg/dL Invalid Interpretation Code 7-18 [facility] Work Phone: [phone] Lab Report: Lipid Profileon 09-08-2016 Cholesterol 205 mg/dL High 200 [facility] Work Phone: [phone] HDL Cholesterol 45 mg/dL Invalid Interpretation Code [facility] Work Phone: [phone] LDL Cholesterol 119 mg/dL Invalid Interpretation Code 0-130 [facility] Work Phone: [phone] Triglyceride 206 mg/dL High [facility] Work Phone: [phone] very low density lipoproteins 41 mg/dL High 5-40 [facility] Work Phone: [phone] Lab Report: Magnesiumon 08-16 Magnesium 2.0 mg/dL Invalid Interpretation Code 1.8-2.4 [facility] Work Phone: [phone] Lab Report: Thyroid Stim Hor karina (TSH)on 09-08-2016 Thyroid stimulating hormone (TSH) 1.81 u[iU]/mL Invalid Interpretation Code 0.358-3.74 [facility] Work Phone: [phone] Office Visiton 09-06-2016 Documentation of current medications (procedure) Done Invalid Interpretation Code [facility] Work Phone: [phone] Fall risk assessment Fall risk assessment Invali d Interpretation Code [facility] Work Phone: [phone] 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 Left ventricular Ejection fraction 55 % Invalid Interpretation Code [facility] Work Phone: [phone] Office Visit: UC: Nael pressley 05-03-2016 Tobacco smoking status NHIS Never Invalid Interpretation Code [facility] Work Phone: [phone] Tobacco smoking status NHIS Never smoker [facility] Work Phone: [phone] Tobacco use HS Never smoker Invalid Interpretation Code [facility] Work Phone: [phone] Lab Report: CBC, Employeeon 09-17-2015 Basophils/100 leukocytes 0.6 % Invalid Interpretation Code 0-1 [facility] Work Phone: [phone] Basophils/100 WBC (Bld) 0.6 % 0-1 [facility] Work Phone: [phone] Eosinophils/100 leukocytes 3.8 % Invalid Interpretation Code 0-5 [facility] Work Phone: [phone] Eosinophils/100 WBC (Bld) 3.8 % 0-5 [facility] Work Phone: [phone] Erythrocyte distribution width (RBC) [Ratio] 43.5 fL 35.1-43.9 [facility] Phone: [phone] Erythrocyte distribution width (RBC) [Ratio] 13.2 % 11.6-14.6 [facility] Work Phone: [phone] Erythrocytes (RBC) 4.31 10*6/uL Invalid Interpretation Code 4.2-5.4 [facility] Phone: [phone] Hematocrit (Bld) [Volume fraction] 39.1 % 37-47 [facility] Work Phone: [phone] Hematocrit (HCT) 39.1 % Invalid Interpretation Code 37-47 [facility] Work Phone: [phone] Hemoglobin (Bld) [Mass/Vol] 12.6 g/dL Invalid Interpretation Code 12.0-15.0 [facility] Work Phone: [phone] Lymphocytes 1.99 X10 3/UL Invalid Interpretation Code 0.83-4.51 [facility] Work Phone: [phone] Lymphocytes (Bld) [#/Vol] 1.99 X10 3/UL 0.83-4.51 [facility] Work Phone: [phone] Lymphocytes/100 leukocytes 37.8 % Invalid Interpretation Code 19-41 [facility] Work Phone: [phone] Lymphocytes/100 WBC (Bld) 37.8 % 19-41 [facility] Work Phone: [phone] MCH 29.2 pg Invalid Interpretation Code 27.0-32.0 [facility] Work Phone: [phone] MCH (RBC) [Entitic mass] 29.2 pg 27.0-32.0 [facility] Work Phone: [phone] MCHC 32.2 G/GL Invalid Interpretation Code 32-36 [facility] Work Phone: [phone] MCHC (RBC) [Mass/Vol] 32.2 G/GL 32-36 [facility] Work Phone: [phone] MCV 90.7 fL Invalid Interpretation Code 81-99 [facility] Work Phone: [phone] MCV (RBC) [Entitic vol] 90.7 fL 81-99 [facility] Work Phone: [phone] Monocytes/100 leukocytes 9.9 % Invalid Interpretation Code 0-10 [facility] Work Phone: [phone] Monocytes/100 WBC (Bld) 9.9 % 0-10 [facility] Work Phone: [phone] neutrophil count, blood 2.5 X10 3/UL Invalid Interpretation Code 2.0-7.7 [facility] Work Phone: [phone] Neutrophils (Bld) [#/Vol] 2.5 X10 3/UL 2.0-7.7 [facility] Work Phone: [phone] Neutrophils/100 leukocytes 47.7 % Invalid Interpretation Code 47-70 [facility] Work Phone: [phone] Neutrophils/100 WBC (Bld) 47.7 % 47-70 [facility] Work Phone: [phone] Platelet mean volume (Bld) [Entitic vol] 9.4 fL 6.2-12.0 [facility] Work Phone: [phone] Platelets 329 10*3/mm3 Invalid Interpretation Code 150-450 [facility] Work Phone: [phone] Platelets (Bld) [#/Vol] 329 10*3/mm3 150-450 [facility] Work Phone: [phone] PMV by Violet 9.4 fL Invalid Interpretation Code 6.2-12.0 [facility] Work Phone: [phone] RBC (Bld) [#/Vol] 4.31 10*6/uL 4.2-5.4 [facility] Work Phone: [phone] RDW-CA 13.2 % Invalid Interpretation Code 11.6-14.6 [facility] Work Phone: [phone] red blood cell distribution width, size density 43.5 fL Invalid Interpretation Code 35.1-43.9 [facility] Work Phone: [phone] WBC (Bld) [#/Vol] 5.3 10*3/uL 4.4-11.0 [facility] Work Phone: [phone] WBC (Leukocytes) 5.3 10*3/uL Invalid Interpretation Code 4.4-11.0 [facility] Work Phone: [phone] Lab Report: Employee Profile on 09-17-2015 Albumin [Mass/Vol] 3.3 g/dL Low 3.4-5.0 [facility] Work Phone: [phone] Albumin/Globulin [Mass ratio] 0.8 {ratio} Low 0.9-2.4 [facility] Work Phone: [phone] Alkaline phosphatase (ALP) 52 U/L Invalid Interpretation Code 50-136 [facility] Work Phone: [phone] ALP (Bld) [Catalytic activity/Vol] 52 U/L 50-136 [facility] Work Phone: ALT [Catalytic activity/Vol] 25 U/L Invalid Interpretation Code 12-78 [facility] Work Phone: [phone] Anion gap 6 mmol/L Invalid Interpretation Code 5-15 [facility] Work Phone: [phone] Anion gap [Moles/Vol] 6 mmol/L 5-15 [facility] Work Phone: [phone] AST [Catalytic activity/Vol] 17 U/L Invalid Interpretation Code 15-37 [facility] Work Phone: [phone] Bilirubin [Mass/Vol] 0.40 mg/dL Invalid Interpretation Code 0.20-1.00 [facility] Work Phone: [phone] Bilirubin.direct [Mass/Vol] 0.08 mg/dL Invalid Interpretation Code 0.00-0.30 [facility] Work Phone: [phone] Calcium [Mass/Vol] 8.8 mg/dL Invalid Interpretation Code 8.5-10.1 [facility] Work Phone: [phone] Chloride [Moles/Vol] 107 mmol/L Invalid Interpretation Code 98-107 [facility] Work Phone: [phone] CHOL:HDL 4.10 [facility] Work Phone: [phone] Cholesterol [Mass/Vol] 192 mg/dL Invalid Interpretation Code 200 [facility] Work Phone: [phone] Cholesterol in HDL [Mass/Vol] 47 mg/dL Invalid Interpretation Code [facility] Work Phone: [phone] Cholesterol in LDL [Mass/Vol] 111 mg/dL Invalid Interpretation Code 0-130 [facility] Work Phone: [phone] CO2 26.0 mmol/L Invalid Interpretation Code 21.0-32.0 [facility] Work Phone: [phone] CO2 (BldV) [Partial pressure] 26.0 mmol/L 21.0-32.0 [facility] Work Phone: [phone] Creatinine [Mass/Vol] 0.81 mg/dL Invalid Interpretation Code 0.55-1.20 [facility] Work Phone: [phone] eGFR (non-black) 97 mL/min/{1.73_m2} Invalid Interpretation Code >60 [facility] Work Phone: [phone] EST GFR - AA 97 mL/min >60 [facility] Work Phone: [phone] GE use only - for [employer] import when terms are not otherwise specified 4.10 Invalid Interpretation Code [facility] Work Phone: [phone] GFR/1.73 sq M predicted among non-blacks MDRD (S/P/Bld) [Vol rate/Area] 80 mL/min/{1.73_m2} Invalid Interpretation Code >60 [facility] Work Phone: [phone] Globulin 4.2 g/dL High 2.3-3.5 [facility] Work Phone: [phone] Globulin (S) [Mass/Vol] 4.2 g/dL High 2.3-3.5 [facility] Work Phone: [phone] Glucose 86 mg/dL Invalid Interpretation Code 70-110 [facility] Work Phone: [phone] Glucose [Mass/Vol] 86 mg/dL 70-110 [facility] Work Phone: [phone] lactate dehydrogenase - serum 200 U/L Invalid Interpretation Code 84-246 [facility] Work Phone: [phone] LDH 200 U/L 84-246 [facility] Work Phone: [phone] Lipoprotein.pre-beta [Mass/Vol] 34 mg/dL Invalid Interpretation Code 5-40 [facility] Work Phone: [phone] Phosphate [Mass/Vol] 2.2 mg/dL Low 2.5-4.[address] [facility] Work Phone: [phone] Phosphorus Concentratation-Rando m 2.2 mg/dL Low 2.5-4.9 [facility] Work Phone: [phone] Potassium [Moles/Vol] 4.0 mmol/L Invalid Interpretation Code 3.5-5.1 [facility] Work Phone: [phone] Protein [Mass/Vol] 7.5 g/dL Invalid Interpretation Code 6.4-8.2 [facility] Work Phone: [phone] Sodium [Moles/Vol] 139 mmol/L Invalid Interpretation Code 136-145 [facility] Work Phone: [phone] Triglyceride [Mass/Vol] 172 mg/dL Invalid Interpretation Code [facility] Work Phone: [phone] Urate [Mass/Vol] 5.1 mg/dL Invalid Interpretation Code 2.6-6.0 [facility] Work Phone: [phone] Urea nitrogen [Mass/Vol] 14 mg/dL Invalid Interpretation Code 7-18 [facility] Work Phone: [phone] Urea nitrogen/Creatinine [Mass ratio] 17.2 RATIO Invalid Interpretation Code 10-20 [facility] Work Phone: [phone] Lab Report: T4 Total, Thyrox inon 09-17-2015 T4 [Mass/Vol] 9.8 ug/dL Invalid Interpretation Code 4.8-13.9 [facility] Work Phone: [phone] Lab Report: Thyroid Stim Hor karina (TSH)on 09-17-2015 TSH Qn 1.41 u[iU]/mL Invalid Interpretation Code 0.358-3.74 [facility] Work Phone: [phone] Lab Report: Urinalysis, Empl tigreon 09-17-2015 Albumin Ql (U) Negative Negative [facility] Work Phone: [phone] Bilirubin Ql (U) Negative Negative [facility] Work Phone: [phone] Clarity (U) Turbid Invalid Interpretation Code Clear [facility] Work Phone: [phone] Color (U) Yellow Invalid Interpretation Code Yellow [facility] Work Phone: [phone] Glucose Ql (U) Normal mg/dl Invalid Interpretation Code Normal [facility] Work Phone: [phone] Ketones (U) [Mass/Vol] Negative Negative [facility] Work Phone: [phone] Leukocyte esterase Test strip Ql (U) 100 High Negative [facility] Work Phone: [phone] Nitrite Urine Negative Invalid Interpretation Code Negative [facility] Work Phone: [phone] Occult Blood, urine 50 High Negative [facility] Work Phone: [phone] OCCULT BLOOD-UR 50 High Negative [facility] Work Phone: [phone] pH (U) 6.0 [pH] 5.0 - 8.0 [facility] Work Phone: [phone] Specific gravity Refractometry (U) [Rel density] 1.025 Invalid Interpretation Code 1.002-1.030 [facility] Work Phone: [phone] Urine, bilirubin presence Negative Invalid Interpretation Code Negative [facility] Work Phone: [phone] Urine, ketones presence Negative Invalid Interpretation Code Negative [facility] Work Phone: [phone] Urine, pH 6.0 [pH] Invalid Interpretation Code 5.0 - 8.0 [facility] Work Phone: [phone] Urine, protein Negative Invalid Interpretation Code Negative [facility] Work Phone: [phone] urobilinogen, urine, by dipstick Normal mg/dl Invalid Interpretation Code Normal [facility] Work Phone: [phone] Vital Signs Date Time Vital Sign Value Performing Clinician Faci elviey 06-21-2023 15:03-0500 Body height 170.[address] Patt Salamanca Work Phone: [facility] 06-21-2023 15:03-0500 Body mass index (BMI) [Ratio] 37 kg/m2 Dr. Patt Salamanca Work Phone: [facility] 06-21-2023 15:03-0500 Body weight 107.[address] Patt Salamanca Work Phone: [facility] 05-26-2023 15:15-0500 Body temperature 97.8 [degF] Dr. Patt Salamanca Work Phone: [facility] 05-26-2023 15:15-0500 Diastolic blood pressure 74 mm[Hg] Dr. Patt Salamanca Work Phone: [facility] 05-26-2023 15:15-0500 Heart rate 92 /min Dr. Patt Salamanca Work Phone: [facility] 05-26-2023 15:15-0500 Respiratory rate 18 /min Dr. Patt Salamanca Work Phone: [facility] 05-26-2023 15:15-0500 SaO2% (BldA) [Mass fraction] 96 % Dr. Patt Salamanca Work Phone: [facility] 05-26-2023 15:15-0500 Systolic blood pressure 138 mm[Hg] Dr. Patt Salamanca Work Phone: [facility] 01-10-2023 15:09-0400 Body height 170.[address] Patt Salamanca Work Phone: [facility] 01-10-2023 15:09-0400 Body mass index (BMI) [Ratio] 36.8 kg/m2 Dr. Patt Salamanca Work Phone: [facility] 01-10-2023 15:09-0400 Body weight 106.[address] Patt Salamanca Work Phone: [facility] 01-10-2023 15:09-0400 Diastolic blood pressure 79 mm[Hg] Dr. Patt Salamanca Work Phone: [facility] 01-10-2023 15:09-0400 Heart rate 80 /min Dr. Patt Salamanca Work Phone: [facility] 01-10-2023 15:09-0400 Respiratory rate 18 /min Dr. Patt Salamanca Work Phone: [facility] 01-10-2023 15:09-0400 SaO2% (BldA) [Mass fraction] 94 % Dr. Patt Salamanca Work Phone: [facility] 01-10-2023 15:09-0400 Systolic blood pressure 116 mm[Hg] Dr. Patt Salamanca Work Phone: [facility] 12-22-2022 15:11-0400 Body mass index (BMI) [Ratio] 37 kg/m2 Dr. Patt Salamanca Work Phone: [facility] 12-22-2022 15:11-0400 Body temperature 97.1 [degF] Dr. Patt Salamanca Work Phone: [facility] 12-22-2022 15:11-0400 Body weight 107.[address] Patt Salamanca Work Phone: [facility] 12-22-2022 15:11-0400 Diastolic blood pressure 78 mm[Hg] Dr. Patt Salamanca Work Phone: [facility] 12-22-2022 15:11-0400 Heart rate 84 /min Dr. Patt Salamanca Work Phone: [facility] 12-22-2022 15:11-0400 Respiratory rate 18 /min Dr. Patt Salamanca Work Phone: [facility] 12-22-2022 15:11-0400 SaO2% (BldA) [Mass fraction] 96 % Dr. Patt Salamanca Work Phone: [facility] 12-22-2022 15:11-0400 Systolic blood pressure 112 mm[Hg] Dr. Patt Salamanca Work Phone: [facility] 09-06-2016 09:00-0400 BMI (Body Mass Index) 36.02 kg/m2 [facility] Work Phone: 09-06-2016 09:00-0400 BP Diastolic 82 mm[Hg] [facility] Work Phone: 09-06-2016 09:00-0400 BP Systolic 130 mm[Hg] [facility] Work Phone: 09-06-2016 09:00-0400 Height 170.18 cm Amna Olivier [facility] Work Phone: 09-06-2016 09:00-0400 Pulse (Heart Rate) 72 /min Amna Olivier [facility] Work Phone: 09-06-2016 09:00-0400 Respiratory Rate 20 /min Amna Olivier [facility] Work Phone: 09-06-2016 09:00-0400 Weight 104.33 kg Amna Olivier [facility] Work Phone: 05-03-2016 11:37-0500 BMI (Body Mass Index) 36.96 kg/m2 [facility] Work Phone: 05-03-2016 11:37-0500 Body Temperature 98.4 [degF] Payton Rueda RN [facility] Work Phone: 05-03-2016 11:37-0500 Body weight 107.05 kg Payton Rueda RN [facility] Work Phone: 05-03-2016 11:37-0500 BP Diastolic 86 mm[Hg] Payton Rueda RN [facility] Work Phone: 05-03-2016 11:37-0500 BP Systolic 124 mm[Hg] Payton Rueda RN [facility] Work Phone: 05-03-2016 11:37-0500 BSA (Body Surface Area) 2.17 m2 Payton Rueda RN [facility] Work Phone: 05-03-2016 11:37-0500 Pulse (Heart Rate) 87 /min Payton Rueda RN [facility] Work Phone: 05-03-2016 11:37-0500 Pulse Oximetry 98 % Payton Rueda RN [facility] Work Phone: 05-03-2016 11:37-0500 Respiratory Rate 16 /min Payton Rueda RN [facility] Work Phone: 08-24-2015 13:16-0400 Height 170.18 cm Payton Rueda RN [facility] Work Phone: Encounters Encounter Date Encounter Type Care Provider Facility Start: 06-12-2024 Encounter for genera l adult medical examination without abnormal findings Andrea Curtis [employer] [facility] Start: 05-28-2024 End: 05-28-2024 ambulatory Andrea Curtis [employer] Facility:[facility] Start: 02-16-2024 ambulatory Payton Mahmood Facility: [facility] Start: 02-09-2024 End: 02-09-2024 ambulatory Andrea Curtis [employer] Facility:[facility] Start: 12-25-2023 End: 12-25-2023 ambulatory Patt Salamanca Facility:[facility] Start: 12-22-2023 ambulatory Patt Salamanca Facili ty:[facility] Start: 07-05-2023 End: 07-05-[address] Patt Salamanca Work Phone: [facility] Work Phone: Start: 07-05-2023 End: 07-05-[address] Patt Salamanca Work Phone: [facility] Work Phone: Start: 07-05-2023 End: 07-05-2023 ambulatory Patt Salamanca Facility:[facility] Start: 06-30-2023 End: 06-30-[address] Patt Salamanca Work Phone: [facility] Work Phone: Start: 06-30-2023 End: 06-30-[address] Patt Salamanca Work Phone: [facility] Work Phone: Start: 06-30-2023 End: 06-30-2023 ambulatory Sanket Evans Facility:[facility] Start: 06-21-2023 End: 06-21-[address] Patt Salamanca Work Phone: [facility] Work Phone: Start: 06-21-2023 End: 06-21-2023 ambulatory Patt Salamanca Facility:[facility] Start: 06-15-2023 End: 06-15-[address] Patt Salamanca Work Phone: [facility] Work Phone: Start: 06-15-2023 End: 06-15-[address] Patt Salamanca Work Phone: [facility]-Physical Therapy Work Phone: Start: 06-15-[address] Gregory Salamanca Work Phone: [facility]Physical Therapy Work Phone: Start: 05-26-2023 End: 05-26-[address] Patt Salamanca Work Phone: [facility] Work Phone: Start: 04-18-2023 End: 04-23-2023 ambulatory KOURTNEY MOSQUERA Facility:[facility] Start: 04-18-2023 End: 04-22-2023 Outreach Lab KOURTNEY MOSQUERA MD [facility] Start: 03-29-2023 End: 03-29-[address] Patt Salamanca Work Phone: [facility] Work Phone: Start: 03-29-2023 End: 03-29-[address] Patt Salamanca Work Phone: [facility] Work Phone: Start: 03-24-2023 End: 03-24-[address] Patt Salamanca Work Phone: [facility] Work Phone: Start: 03-24-2023 End: 03-24-[address] Patt Salamanca Work Phone: [facility]-Laboratory Work Phone: Start: 01-10-2023 End: 01-10-[address] Patt Salamanca Work Phone: [facility] Work Phone: Start: 01-09-[address] Otis Salamanca Work Phone: [facility] Start: 12-22-[address] Patt Salamanca Work Phone: [facility] Start: 12-22-2022 End: 12-22-2022 Encounter for general adult medical examination without abnormal findings Dr. Patt Salamanca Work Phone: [facility] Start: 12-22-2022 End: 12-22-[address] Patt Salamanca Work Phone: [facility] Work Phone: Procedures Date Procedure Procedure Detail Performing Clinician Start: 07-05-2023 X-ray of cervical spine Dr. Patt Salamanca Work Phone: Start: 06-30-2023 MRI of cervical spine Billy Salamanca Work Phone: Start: 03-29-[address] Orly Salamanca Work Phone: Start: 09-06-2016 End: 09-13-2016 *BMP Emanuel Moreira MD Start: 09-06-2016 End: 09-15-2016 24 hour holter monitor Emanuel Moreira MD Start: 09-06-2016 End: 09-06-2016 OUTREACH COUNSELOR Emanuel Moreira MD Start: 09-06-2016 End: 09-06-2016 Follow Up Appt 1 year Emanuel Moreira MD Start: 09-06-2016 End: 09-13-2016 Magnesium Emanuel Moreira MD Start: 09-06-2016 End: 09-13-2016 Thyroid stimulating hormone (TSH) mEanuel Moreira MD Start: 05-03-2016 End: 05-03-2016 Documentation of current medications Payton Rueda RN Start: 05-03-2016 End: 05-03-2016 [facility] streptococcus [facility] Brent SANDOVAL Work Phone: Start: 05-03-2016 End: 05-03-2016 Rapid strep test Brent SANDOVAL Work Phone: Start: 09-17-2015 End: 09-17-2015 Urinalysis Payton Rueda RN Start: 09-08-2015 End: 10-01-2015 Echocardiography Emanuel Moreira MD Start: 09-08-2015 End: 09-17-2015 Thyroid stimulating hormone (TSH) Emanuel Moreira MD Start: 09-08-2015 End: 09-17-2015 Thyroxine (T4) Emanuel Moreira MD Appendectomy KOURTNEY MOSQUERA MD Back structure, excl uding neck (body structure) KOURTNEY MOSQUERA MD Comment on above: multiple back surger ies Plan of Treatment Date Care Activity Detail Author Start: 07-05-2023 X-ray of cervical spine Cerv Spine 2 or 3 Views [facility] Start: 07-05-2023 XR Cervical spine 2 or 3 Views [facility] Start: 05-26-2023 Patient referral [facility] Work Phone: Start: 12-22-2022 Patient referral [facility] Work Phone: Start: 09-13-2017 End: 09-23-2016 *Hepatic Function Panel *Hepatic Function Panel [facility] Work Phone: Start: 09-13-2017 End: 09-23-2016 Lipid panel [AGGREGATE] *Lipid Profile CC PCP [facility] Work Phone: Start: 09-06-2017 End: 09-06-2017 Appointment Appointment [facility] Work Phone: Start: 09-06-2017 End: 09-06-2017 Appointment Appointment [facility] Work Phone: Start: 09-06-2016 End: 09-06-2016 Appointment Appointment [facility] Work Phone: Start: 09-06-2016 End: 09-13-2016 *BMP *BMP [facility] Work Phone: Start: 09-06-2016 End: 09-06-2016 24 hour holter monitor 24 hour holter monitor [facility] Work Phone: Start: 09-06-2016 End: 09-06-2016 OUTREACH COUNSELOR OUTREACH COUNSELOR [facility] Work Phone: Start: 09-06-2016 End: 09-06-2016 Follow Up Appt 1 year Follow Up Appt 1 year [facility] Work Phone: Start: 09-06-2016 End: 09-13-2016 Magnesium *Magnesium [facility] Work Phone: Start: 09-06-2016 End: 09-13-2016 Thyroid stimulating hormone (TSH) *TSH [facility] Work Phone: Start: 09-08-2015 End: 09-08-2015 OUTREACH COUNSELOR OUTREACH COUNSELOR [facility] Work Phone: Start: 09-08-2015 End: 09-08-2015 Echocardiography Echocardiogram (complete) [facility] Work Phone: Start: 09-08-2015 End: 09-08-2015 Follow Up Appt 1 year Follow Up Appt 1 year [facility] Work Phone: Start: 09-08-2015 End: 09-08-2015 Lipid panel [AGGREGATE] *Lipid Profile CC PCP [facility] Work Phone: Start: 09-08-2015 End: 09-17-2015 Thyroid stimulating hormone (TSH) *TSH [facility] Work Phone: Start: 09-08-2015 End: 09-17-2015 Thyroxine (T4) *T4 (Total) [facility] Work Phone: Start: 08-24-2015 End: 08-28-2015 Cardiac Referral Cardiac Referral Emanuel Moreira MD, [facility], [address], [place], [address] [facility] Work Phone: Patient Education HEART%20PALPITATIONS [facility] Work Phone: Patient referral [facility] Work Phone: Immunizations Immunization Date Immunization Notes Care Provider [facility] 01-12-2023 influenza, injectabl e, quadrivalent, preservative free Dr. Patt Salamanca Work Phone: [facility] 01-14-2022 influenza, injectabl e, quadrivalent, preservative free Dr. Patt Salamanca Work Phone: [facility] 03-26-2021 Covid ([facility]) Dr. Mary Salamanca Work Phone: [facility] 02-26-2021 Cliff ([facility]) Dr. Mary Salamanca Work Phone: [facility] 01-12-2021 influenza, injectabl e, quadrivalent, preservative free Dr. Patt Salamanca Work Phone: [facility] 01-14-2020 influenza, injectabl e, quadrivalent, preservative free Dr. Patt Salamanca Work Phone: [facility] 01-10-2019 influenza, injectabl e, quadrivalent, preservative free Dr. Patt Salamanca Work Phone: [facility] 01-12-2018 influenza, injectabl e, quadrivalent, preservative free Dr. Patt Salamanca Work Phone: [facility] 01-11-2017 influenza, injectabl e, quadrivalent, preservative free Dr. Patt Salamanca Work Phone: [facility] 01-15-2016 influenza, injectabl e, quadrivalent, preservative free Dr. Patt Salamanca Work Phone: [facility] 01-14-2015 influenza, injectabl e, quadrivalent, preservative free Dr. Patt Salamanca Work Phone: [facility] 01-01-2014 influenza, injectabl e, quadrivalent, preservative free Dr. Patt Salamanca Work Phone: [facility] Payers Date Payer Category Payer Self-pay [id number] 2022 Unknown [id number] 2015 Unknown [facility] DO NOT USE 22 [id number] 1965 Unknown [id number] Private Health Insurance [employer] B [place] DO NOT USE 04.17.22* [id number] Unknown [id number] 2 Unknown [id number] 2 Unknown [id number] 2 Unknown [id number] 2 Unknown [id number] 2 Unknown [id number] 2 Unknown [id number] 2 Unknown [id number] 2 Unknown [id number] 2 Social History Date Type Detail Facility Start: 01-10-2023 End: 07-05-2023 Tobacco smoking status NHIS Unknown if ever smoked [facility] Start: 1965 Sex Assigned At Female W [facility] Start: 11-26-2020 Tobacco smoking status Never s moked tobacco (finding) [facility] Clinical Notes 03-22-2023 to 07-31-2023 Note Date & Type Note Facility 07-31-2023 Discharge summary Note Date/Time July 31, 2023 12:29pm [facility] Physical Therapy [facility] [address] [place] [address] [address] [place] [address] / REHABILITATION SERVICES DISCHARGE SUMMARY MR#: [id number] Acct: [id number] Name: EMILY MARQUEZ Rep #: [id number] : 1965 58 From: Cert. JOSELIN Malcolm, [facility] Referring Dr.: JAIME Monaco Status: REG RCR Insurance: [employer] SELF PAY INSURANCE Patient Information Patient Information: EMILYBAO MARQUEZ was seen in my office for initial evaluation on 06/15/23. The following Plan of Care was established for this patient: POC Established Initial Frequency: 2x /Week Initial Duration: 4 Weeks Anticipated Interventions Patient/Client Instruction: Educate patient on: Condition and Plan of Care For the Purpose of:: To decrease pain, To increase ROM, To improve muscle performance and motor function, To improve ability to perform ADL's, To increasetolerance to activity/condition/position, To improve ability of physical actionsfor home/community/work/leisure, To improve health of tissue, To decrease soft tissue restriction, To increase flexibility/ROM and To improve tolerance to ADL's Therapeutic Exercise to Include: Strength training, Postural training, Flexibilty training, Active ROM and Kevin Exercises For the Purpose of:: To decrease pain, To increase ROM, To improve nutrient delivery to tissue, To increase oxygenation perfusion, To improve muscle performance and motor function, To increase tolerance to activity/condition/position, To improve ability of physical actions for home/community/work/leisure, To improve health of tissue, To decrease soft tissue restriction, To increase flexibility/ROM and To improve tolerance to ADL's Last Seen Last Seen: This patient was last seen in our office . Pertinent comments regarding their Physical therapy will appear below: Patient was seen for PT for shoulder pain. Recommended ortho consult and had MRIshowed Cervical HNP. At this point I will be discontinuing this patient from physical therapy. I would be happy to see this patient again in the future if found appropriate by the physician. Thank you! Eliseo Boone PT, Cert MDT, OCS Balance/Gait/Functional tests Balance/Special Test Scores Oswestry Neck Score: 30 <Electronically signed by Mando Hobson PT. JOSELIN, OCS> 07/31/23 1231 CC: JAIME Monaco; Dr. Patt Salamanca MD ~ JLA Signed [facility] Work Phone: 1(440) 686-771401-05-2024 Note LMP: 03/20/2023 Other clinical information: Postmenopausal bleeding [facility] 01-05-2024 Note LMP: 03/20/2023 Other clinical information: Postmenopausal bleeding [facility] 01-05-2024 Note LMP: 03/20/2023 Other clinical information: Postmenopausal bleeding [facility] 01-05-2024 Note LMP: 03/20/2023 Other clinical information: Postmenopausal bleeding [facility] 01-05-2024 Note LMP: 03/20/2023 Other clinical information: Postmenopausal bleeding [facility] 01-05-2024 Note LMP: 03/20/2023 Other clinical information: Postmenopausal bleeding [facility] 01-05-2024 Note LMP: 03/20/2023 Other clinical information: Postmenopausal bleeding [facility] 01-05-2024 Note LMP: 03/20/2023 Other clinical information: Postmenopausal bleeding [facility] 01-05-2024 Note POSTMENOPAUSAL BLEEDING, SCREENING FOR BREAST CANCER, SCREENING FOR CERVICAL CANCER Procedure: ENDOMETRIAL BX Preoperative diagnosis: ABNORMAL BLEEDING Postoperative diagnosis: SAME ABOVE [facility] 01-05-2024 Note POSTMENOPAUSAL BLEEDING, SCREENING FOR BREAST CANCER, SCREENING FOR CERVICAL CANCER Procedure: ENDOMETRIAL BX Preoperative diagnosis: ABNORMAL BLEEDING Postoperative diagnosis: SAME ABOVE [facility] 01-04-2024 Note POSTMENOPAUSAL BLEEDING, SCREENING FOR BREAST CANCER, SCREENING FOR CERVICAL CANCER Procedure: ENDOMETRIAL BX Preoperative diagnosis: ABNORMAL BLEEDING Postoperative diagnosis: SAME ABOVE [facility] 01-04-2024 Note POSTMENOPAUSAL BLEEDING, SCREENING FOR BREAST CANCER, SCREENING FOR CERVICAL CANCER Procedure: ENDOMETRIAL BX Preoperative diagnosis: ABNORMAL BLEEDING Postoperative diagnosis: SAME ABOVE [facility] 01-04-2024 Note POSTMENOPAUSAL BLEEDING, SCREENING FOR BREAST CANCER, SCREENING FOR CERVICAL CANCER Procedure: ENDOMETRIAL BX Preoperative diagnosis: ABNORMAL BLEEDING Postoperative diagnosis: SAME ABOVE [facility] 01-04-2024 Note POSTMENOPAUSAL BLEEDING, SCREENING FOR BREAST CANCER, SCREENING FOR CERVICAL CANCER Procedure: ENDOMETRIAL BX Preoperative diagnosis: ABNORMAL BLEEDING Postoperative diagnosis: SAME ABOVE [facility] 01-04-2024 Note POSTMENOPAUSAL BLEEDING, SCREENING FOR BREAST CANCER, SCREENING FOR CERVICAL CANCER Procedure: ENDOMETRIAL BX Preoperative diagnosis: ABNORMAL BLEEDING Postoperative diagnosis: SAME ABOVE [facility] 12-06-2023 Evaluation + Plan note Future Scheduled Tests Laboratory* Luteinizing Hormone 03/22/23 * Follicle Stimulating Hormone Level 03/22/23 Radiology* MA Mammo Screening Bilateral w/ Shivam 04/18/23 * US Pelvis Non-OB W/Transvaginal 03/22/23 [facility] Evaluation note* Diagnosis Onset Date Resolution Status Preventative health care acu te Essential (primary) hypertension chronic Essential (primary) hypertension chronic Hyperlipidemia chronic [facility] Work Phone: Evaluation note* Diagnosis Onset Date Resolution Status Herniation of intervertebral disc at C5-C6 level acute Herniation of intervertebral disc at C6-C7 level acute Neck pain noneactive Herniation of intervertebral disc at C5-C6 level acute Herniation of intervertebral disc at C6-C7 level acute [facility] Work Phone: Hospital course Narrative No data available for this section [facility] Discharge instructions No data available for this section [facility] Chief Complaint and Reason for Visit Chief Complaint [facility] [employer] [facility] 1 Y FU Reason for Visit Preventative health care Essential (primary) hypertension Essential (primary) hypertension Hyperlipidemia Chief Complaint [facility] 1 Y FU BLEEDING Reason for Visit Preventative health care Essential (primary) hypertension Essential (primary) hypertension Hyperlipidemia Chief Complaint BLEEDING RT SHOULD PAIN R SHOULDER STRAIN. RX HERE Neck pain Other cervical disc displacement at C5-C6 level CERVICAL SPINE Reason for Visit Herniation of interv ertebral disc at C5-C6 level Herniation of intervertebral disc at C6-C7 level Neck pain Herniation of intervertebral disc at C5-C6 level Herniation of intervertebral disc at C6-C7 level Chief Complaint RT SHOULD PAIN R SHOULDER STRAIN. RX HERE Neck pain Other cervical disc displacement at C5-C6 level CERVICAL SPINE Reason for Visit Herniation of interv ertebral disc at C5-C6 level Herniation of intervertebral disc at C6-C7 level Neck pain Herniation of intervertebral disc at C5-C6 level Herniation of intervertebral disc at C6-C7 level Family History No Family History Records Found Relationship Condition Age at Onset Recorded Date/T abram grandfather Myocardial infarction Unknown aunt Malignant neoplasm Unknown mother Myocardial infarction 61 Advance Directives No Advanced Directives Records Found Advance Directive Response Recorded Date/ Time Living Will Yes December 11 1 10:08am Power of Station Master Yes December 11 10:08am Advance Directive Response Recorded Date/ Time Living Will Yes December 11 11:08am Power of Station Master Yes December 11 11:08am Summary Purpose Additional Source Comments Care Teams (unrecognized sec tion and content) Team Status: Active Member Role Status Dates Dr. Tobi Luna DO Family Provider Active Dr. Patt Salamanca MD Primary Care Provider Active Team Status: Inactive Member Role Status Dates Dr. Patt Salamanca MD Primary Care Provider, Refer ring Provider Active Andrea Curtis RIGGING UP MAN, RIGGING UP MAN-C Attending Provider Active Team Status: Inactive Member Role Status Dates Dr. Patt Salamanca MD Primary Care P rovider, Attending Provider, Referring Provider Active Team Status: Active Member Role Status Dates Dr. Patt Salamanca MD Primary Care Provider Active Health Risk Assessment Attending Provider, Referring P rovider Active Team Status: Inactive Member Role Status Dates Dr. Patt Salamanca MD Primary Care Provider Active Dr. Kourtney Mosquera MD Attending Provider, Referring Pr ovider Active Team Status: Inactive Member Role Status Dates Dr. Patt Salamanca MD Primary Care Provider Active Dr. Kourtney Mosquera MD Attending Provider Active Team Status: Inactive Member Role Status Dates Dr. Patt Salamanca MD Primary Care Provider, Refer ring Provider Active Nino SANDOVAL PA Attending Provider Active Team Status: Inactive Member Role Status Dates Dr. Patt Salamanca MD Primary Care Provider, Refer ring Provider Active Dr. Sanket Evans DO Attending Provider Active Team Status: Active Member Role Status Dates Dr. Patt Salamanca MD Primary Care Provider Active Nino SANDOVAL PA Attending Provider, Referring Provi viridiana Active Team Status: Inactive Member Role Status Dates Dr. Patt Salamanca MD Primary Care Provider Active Dr. Sanket Evans DO Attending Provider, Referring P rovider Active Team Status: Active Member Role Status Dates Dr. Patt Salamanca MD Primary Care Provider Active Dr. Sanket Evans DO Attending Provider, Referring Harish valentin Active Team Status: Inactive Member Role Status Dates Dr. Patt Salamanca MD Primary Care Provider Active Nino SANDOVAL, PA Attending Provider, Referring Traecyi viridiana Active Goals (unrecognized section and content) Goals may be documented in a n alternate sectionGoals may be documented in an alternate section No data available for this sectionGoals may be documented in an alternate sectionGoals may be documented in an alternate sectionGoals may be documented in an alternate section INFORMATION SOURCE (unrecogn ized section and content) DATE CREATED AUTHOR 04/24/2023 [facility] [place] ([place] DATE CREATED AUTHOR AUTHOR'S ORGANIZ ATION 06/14/2024 [facility] FOR RECORDS PERTAINING TO PATIENTS WHO ARE OR HAVE BEEN ENROLLED IN A CHEMICAL DEPENDENCY/SUBSTANCEABUSE PROGRAM, SOME INFORMATION MAY BE OMITTED. This clinical summary was aggregated from multiple sources. Caution should be exercised in using it in the provision of clinical care. This summary normalizes information from multiple sources, and as a consequence, information in this document may materially change the coding, format and clinical context of patient data. In addition, data may be omitted in some cases. CLINICAL DECISIONS SHOULD BE BASED ON THE PRIMARY CLINICAL RECORDS. [employer] provides no warranty or guarantee of the accuracy or completeness of information in this document.
[2024-10-25 07:51] LABS: Vitamin D,25 Hydroxy 40.0 ng/mL (30-100)
== END | disposition home or self-care (01) ==
LOC: LAB 06:07
PROVIDERS: PCP Internal Medicine; Referring Provider Nurse Practitioner Family; Visit Provider Nurse Practitioner Family
DX: Z00.00 Encounter for general adult medical examination without abnormal findings (principal); I10 Essential (primary) hypertension; E66.9 Obesity, unspecified; E55.9 Vitamin D deficiency, unspecified
CPT/HCPCS: 36415; 82306; 83036; 84443

== ENCOUNTER → 2024-12-10 | Outpatient (CLI) | payer OTHER, SELFPAY ==
--- NOTE | 2024-12-10 16:39 | BI_ITS ---
EXAM: SCRN MAMM (CAD)W/THOMAS BILAT DATE: 12/10/2024 CLINICAL HISTORY: F, Age 59 y/o , SCREENING Aunt with breast cancer. TECHNIQUE: SCRN MAMM (CAD)W/THOMAS BILAT COMPARISON: Prior exam(s) dated September 26, 2016.. FINDINGS: TISSUE DENSITY: The breasts are heterogeneously dense, which may obscure small masses. Bilateral Breast Mammographic Findings: No significant masses, calcifications or other abnormalities are identified. Benign-appearing small axillary lymph nodes. No suspicious masses, areas of developing architectural distortion, or suspicious calcifications. There has been no significant interval change. BI/SCRN MAMM (CAD)W/THOMAS BILAT IMPRESSION: Stable examination. OVERALL FINAL ASSESSMENT BI-RADS 2: BENIGN RECOMMENDATION: Routine annual follow-up in 1 Year A letter with findings and recommendations will be mailed to the patient. Reading Location: [id number]
== END | disposition home or self-care (01) ==
LOC: OPBI 12-11 08:27
PROVIDERS: PCP Nurse Practitioner Family; Referring Provider Nurse Practitioner Family; Visit Provider Nurse Practitioner Family
DX: Z12.31 Encounter for screening mammogram for malignant neoplasm of breast (principal)
CPT/HCPCS: 77063; 77067

== ENCOUNTER → 2024-12-18 | Outpatient (CLI) | payer OTHER, SELFPAY ==
--- NOTE | 2024-12-18 14:38 | CDU_ITS ---
Reason For Study Reason For Study: Evaluate for atherosclerosis Rt. Velocities/BP Lt. Velocities/BP Prox CCA 98.2/21.8 cm/sec. Prox CCA 126.6/18.8 cm/sec. Mid CCA 99.2/18.8 cm/sec. Mid CCA 90.0/26.1 cm/sec. Dist CCA 90.0/22.5 cm/sec. Dist CCA 72.9/23.4 cm/sec. Prox ICA 81.7/19.0 cm/sec. Prox ICA 58.6/16.8 cm/sec. Mid ICA 60.8/22.3 cm/sec. Mid ICA 85.0/32.2 cm/sec. Dist ICA 72.8/32.3 cm/sec. Dist ICA 72.9/31.1 cm/sec. Rt. ICA/CCA = 0.8. Lt. ICA/CCA = 0.9. Prox ECA 112.0/13.3 cm/sec. Prox ECA 104.7/17.0 cm/sec. Rt. Vert. 54.4/11.4 cm/sec. Lt. Vert. 54.2/20.1 cm/sec. Right Extracranial There is intimal thickening but no significant atherosclerotic plaque noted in the right common carotid artery. There is intimal thickening but no significant atherosclerotic plaque noted in the right internal carotid artery. There is intimal thickening but no significant atherosclerotic plaque noted in the right external carotid artery. Antegrade flow is noted in the right vertebral artery. Left Extracranial There is intimal thickening but no significant atherosclerotic plaque noted in the left common carotid artery. There is intimal thickening but no significant atherosclerotic plaque noted in the left internal carotid artery. There is intimal thickening but no significant atherosclerotic plaque noted in the left external carotid artery. Antegrade flow is noted in the left vertebral artery. Procedure Carotid Duplex [id number]. This is a Carotid Duplex examination using B-mode, color flow and specral Doppler. Exam performed in department. VL/Carotid Duplex Ultrasound Interpretation Summary Normal right extracranial internal carotid. Normal left extracranial internal carotid. Patent and antegrade vertebrals bilaterally. Ordering Physician: Andrea Curtis Referring Physician: Andrea Curtis Performed By: Lucia Sheikh RVT
== END | disposition home or self-care (01) ==
LOC: CVS 14:37
PROVIDERS: PCP Nurse Practitioner Family; Referring Provider Nurse Practitioner Family; Visit Provider Nurse Practitioner Family
DX: I65.22 Occlusion and stenosis of left carotid artery (principal); Z71.89 Other specified counseling; E66.9 Obesity, unspecified; I10 Essential (primary) hypertension; E78.2 Mixed hyperlipidemia; R00.2 Palpitations; R01.1 Cardiac murmur, unspecified
CPT/HCPCS: 93880